=== PATIENT | female | born 1935 | race Caucasian/White ===

== ENCOUNTER 2016-07-22 11:08 | Emergency (ER) | payer OTHER, MEDICARE ==
[2016-07-22 11:17] VITALS: BMI 24.0
--- NOTE | 2016-07-22 12:38 | PDOC ---
History of Present Illness - General Chief Complaint: Chest Pain Stated Complaint: CHEST PAIN, LT SIDE NUMBNESS Time Seen by Provider: 07/22/16 11:54 History Source: Patient Exam Limitations: No Limitations - History of Present Illness Initial Comments: 07/22/16 12:34 80-year-old female with complaints of midsternal chest tightness that radiated to her right shoulder and then to her right neck, right head, and right arm. Patient states with massage and movement symptoms went away but then returned again today and also resolved with massage but decided come to the ER since she was afraid of a stroke versus nerve pain due to her chronic back pain and multiple surgeries. Patient states is under the care of neurosurgeon Dr. Barajas and is pending a cervical surgery due to nerve pain. Patient currently denies chest pain, shortness of breath, palpitations, radiate patient in the chest wall , nausea, diaphoresis, dizziness with episodes. Timing/Duration: 24 hours Severity: moderate Associated Symptoms: reports: chest pain. denies: fever/chills, nausea/vomiting , weakness Past History - Past Medical History Allergies/Adverse Reactions: Allergies Allergy/AdvReac Type Severity Reaction Status Date / Time morphine Allergy hallucinati Verified 07/22/16 11:13 ons Home Medications: Ambulatory Orders Lisinopril [Prinivil] 10 mg PO DAILY 12/23/12 Ibuprofen 800 mg PO DAILY 05/30/15 Acetaminophen W/ Codeine #3 [Tylenol # 3 -] 1 - 2 tab PO Q6H PRN #30 tablet Atorvastatin Ca [Lipitor -] 40 mg PO HS #30 tablet 05/31/15 Anemia: Yes Asthma: No Cardiac Disorders: No COPD: No CHF: No Diabetes: No HTN: Yes Hypercholesterolemia: Yes Other medical history: chronic back pain - Immunization History Immunization Up to Date: No - Psycho/Social/Smoking Cessation Hx Anxiety: No Suicidal Ideation: No Smoking Status: No Smoking History: Never smoked Have you smoked in the past 12 months: No Number of Cigarettes Smoked Daily: 0 Information on smoking cessation initiated: No Hx Alcohol Use: No Drug/Substance Use Hx: No Substance Use Type: None Hx Substance Use Treatment: No Patient Lives Alone: No Lives with/in: daughter Review of Systems - Review of Systems Able to Perform ROS?: Yes Constitutional: No: Symptoms Reported HEENTM: No: Symptoms Reported Respiratory: No: Symptoms reported Cardiac (ROS): Yes: Symptoms Reported, Chest Pain ABD/GI: No: Symptoms Reported : No: Symptoms Reported Musculoskeletal: Yes: Joint Pain (rt shoulder), Muscle Pain (rt neck and arm) Integumentary: No: Symptoms Reported Neurological: Yes: Tingling (rt arm). No: Numbness, Paresthesia, Weakness, Unsteady Gait, Dizziness Endocrine: No: Symptoms Reported Hematologic/Lymphatic: No: Symptoms Reported *Physical Exam - Vital Signs Last Vital Signs Temp Pulse Resp BP Pulse Ox 98 F 78 20 130/71 100 07/22/16 11:13 07/22/16 11:13 07/22/16 11:13 07/22/16 11:13 07/22/16 11:50 - Physical Exam General Appearance: Yes: Nourished, Appropriately Dressed. No: Apparent Distress HEENT: positive: EOMI, BRCUE. negative: Pale Conjunctivae Neck: positive: Supple. negative: Tender, Decreased range of motion Respiratory/Chest: positive: Lungs Clear, Normal Breath Sounds. negative: Respiratory Distress, Accessory Muscle Use Cardiovascular: positive: Regular Rhythm, Regular Rate. negative: Murmur Gastrointestinal/Abdominal: positive: Soft. negative: Tenderness Extremity: negative: Normal Capillary Refill, Pedal Edema Integumentary: positive: Normal Color, Warm, Moist Neurologic: positive: Motor Strength 5/5 (ambulatory) Heart Score/ECG Review - History History: Slightly suspicious - Electrocardiogram EKG: Normal - Age Age: >/= 65 - Risk Factors Risk Factors Heart Score: Yes Hx Hypercholesterolemia, Yes Hx Hypertension Based on the list above the patient has:: 1-2 risk factors - Troponin Troponin: </= normal limit - Score Heart Score - Total: 3 - ECG Intrepretation Rhythm: Regular Rhythm (normal sinus rhythm at [address] elevation or depression) ED Treatment Course - LABORATORY CBC & Chemistry Diagram: 07/22/16 12:43 07/22/16 14:00 - RADIOLOGY Radiology Studies Ordered: Category Date Time Status HEAD CT WITHOUT CONTRAST [CT] Stat CT Scan 07/22/16 12:24 Ordered CHEST X-RAY PORTABLE* [RAD] Stat Radiology 07/22/16 12:24 Ordered Medical Decision Making - Medical Decision Making 07/22/16 12:22 Patient with episodic midsternal chest pain with radiation to her right side 2 since yesterday patient states symptoms resolved with movement and massage. Patient states history of multiple back surgeries with scoliosis requiring 3 surgeries and now pending a cervical surgery. Heart score is 3. Patient concerning for ACS versus intracranial pathology. Patient ordered for labs, cardiac workup and a head CT. 07/22/16 13:56 Laboratory Tests 07/22/16 12:43 WBC 5.4 D Hgb 12.5 D Hct 37.5 Neutrophils % 75.5 07/22/16 15:10 Laboratory Tests 07/22/16 07/22/16 07/22/16 14:00 14:00 14:00 INR 0.99 Sodium 142 Potassium 4.3 Chloride 108 H Carbon Dioxide 28 Anion Gap 6 L BUN 16 Creatinine 0.6 D Random Glucose 92 Calcium 9.3 Magnesium 2.4 Total Bilirubin 0.5 AST 20 ALT 23 D Alkaline Phosphatase 76 Creatine Kinase 103 Troponin I < 0.02 Urine RBC 3 Urine WBC 2 Pt maintains asymptomatic and requesting to go home. Patient will be discharged home to follow-up with her PCP. *DC/Admit/Observation/Transfer Diagnosis at time of Disposition: Right-sided headache Chest pain Qualifiers: Chest pain type: unspecified Qualified Code(s): R07.9 - Chest pain, unspecified - Discharge Dispostion Disposition: HOME Condition at time of disposition: Improved - Referrals Referrals: Ale Johnson MD [Primary Care Provider] - - Patient Instructions Printed Discharge Instructions: DI for Headache, DI for Atypical Chest Pain Additional Instructions: Please follow-up with your PCP and take Tylenol or Motrin for discomfort. If symptoms return or worsen please return to the ED.
[2016-07-22 12:57] LABS: BASOPHIL 0.4 % (0-2.0); EOSINOPHIL 0.8 % (0-4.5); MCH 31.9 pg (25.7-33.7); MCHC 33.3 g/dl (32.0-36.0); MEAN CELL VOLUME 95.9 fl (80-96); NEUTROPHILS 75.5 % (42.8-82.8); PLATELET COUNT 217 K/MM3 (134-434); RDW 13.6 % (11.6-15.6); WHITE BLOOD COUNT 5.4 K/mm3 (4.0-10.0)
[2016-07-22 13:21] VITALS: TEMP 98.3
[2016-07-22 14:21] LABS: URINE APPEARANCE CLEAR; URINE BILIRUBIN NEGATIVE (NEGATIVE); URINE BLOOD NEGATIVE (NEGATIVE); URINE COLOR LTYELLOW; URINE GLUCOSE (UA) NEGATIVE (NEGATIVE); URINE KETONE NEGATIVE (NEGATIVE); URINE NITRITE NEGATIVE (NEGATIVE); URINE PROTEIN NEGATIVE (NEGATIVE); URINE UROBILINOGEN NEGATIVE E.U./dl (0.2-1.0)
[2016-07-22 14:22] LABS: URINE LEUK ESTERASE TRACE (NEGATIVE)
[2016-07-22 14:24] LABS: URINE MUCUS RARE; URINE RBC 3 /hpf (0-3); URINE WBC 2 /hpf (3-5)
[2016-07-22 14:32] LABS: INR 0.99 (0.82-1.09); PROTHROMBIN TIME (PATIENT) 10.9 SEC (9.98-11.88)
[2016-07-22 15:00] LABS: ALBUMIN 4.1 g/dl (3.4-5.0); ANION GAP 6 (8-16); BILIRUBIN,TOTAL 0.5 mg/dL (0.2-1.0); CALCIUM 9.3 mg/dL (8.5-10.1); CO2 28 mmol/L (21-32); CREATININE 0.6 mg/dL (0.55-1.02); GLUCOSE,RANDOM 92 mg/dL (74-106); MAGNESIUM 2.4 mg/dL (1.8-2.4); SGOT/AST 20 U/L (15-37); SGPT/ALT 23 U/L (12-78); TOT PROT 6.5 g/dl (6.4-8.2)
[2016-07-22 15:03] LABS: ALK PHOS 76 U/L (45-117); TROPONIN I < 0.02 ng/ml (0.00-0.05)
[2016-07-22 15:27] VITALS: BP 132/80; PULSE 81
--- NOTE | 2016-07-22 16:35 | EKG ---
Test Reason : Blood Pressure : / mmHG Vent. Rate : 079 BPM Atrial Rate : 079 BPM P-R Int : 144 ms QRS Dur : 080 ms QT Int : 404 ms P-R-T Axes : 055 -21 018 degrees QTc Int : 463 ms POOR DATA QUALITY, INTERPRETATION MAY BE ADVERSELY AFFECTED NORMAL SINUS RHYTHM LOW VOLTAGE QRS BORDERLINE ECG WHEN COMPARED WITH ECG OF 31-MAY-2015 09:32, NO SIGNIFICANT CHANGE WAS FOUND Confirmed by KELLEN TURPIN, EDMUNDO ([id number]) on 07/22/2016 4:34:51 PM Referred By: Confirmed By:EDMUNDO FOREMAN MD
== END 2016-07-22 15:27 | disposition home or self-care (01) ==
LOC: JER 11:08 → SUPCPDRO 11:08 → JER 15:27
DX: R07.89 Other chest pain (principal); R51 Headache; I10 Essential (primary) hypertension; E78.00 Pure hypercholesterolemia, unspecified
CPT/HCPCS: 36415; 70450-TC; 71010-TC; 80053; 81003; 81015; 82550; 83735; 84484; 85025; 85610; 93005; 93010; 99285-25

== ENCOUNTER 2017-01-28 20:40 | Emergency (ER) | payer OTHER, MEDICARE ==
[2017-01-28 20:51] VITALS: BP 158/78; PULSE 70; TEMP 97.6; BMI 22.9
[2017-01-28] MEDS ORDERED: predniSONE 20 MG TABLET (UD) PO ONE (21:25)
[2017-01-28] MEDS ORDERED: predniSONE 20 MG TABLET (UD) ONE (21:28)
--- NOTE | 2017-01-28 21:29 | PDOC ---
History of Present Illness - General Chief Complaint: Allergic Reaction Stated Complaint: RASH Time Seen by Provider: 01/28/17 21:19 History Source: Patient Exam Limitations: No Limitations - History of Present Illness Initial Comments: 01/28/17 21:25 81 yr female with itchy rash started on lower legs now on right arm started yesterday after being outside. no diff breathing, no chest pain or shortness of breath. Pt has had same before has seen a weapons engineer. Past History - Past Medical History Allergies/Adverse Reactions: Allergies Allergy/AdvReac Type Severity Reaction Status Date / Time morphine Allergy hallucinati Verified 01/28/17 20:49 ons Home Medications: Ambulatory Orders Lisinopril [Prinivil] 10 mg PO DAILY 12/23/12 Atorvastatin Ca [Lipitor -] 40 mg PO HS #30 tablet 05/31/15 Prednisone [Deltasone -] 20 mg PO DAILY #3 tablet 01/28/17 Anemia: Yes Asthma: No Cardiac Disorders: No COPD: No CHF: No Diabetes: No HTN: Yes Hypercholesterolemia: Yes Other medical history: Glaucoma - Immunization History Immunization Up to Date: No - Psycho/Social/Smoking Cessation Hx Anxiety: No Suicidal Ideation: No Smoking Status: No Smoking History: Never smoked Have you smoked in the past 12 months: No Number of Cigarettes Smoked Daily: 0 Information on smoking cessation initiated: No Hx Alcohol Use: No Drug/Substance Use Hx: No Substance Use Type: None Hx Substance Use Treatment: No *Physical Exam - Vital Signs Last Vital Signs Temp Pulse Resp BP Pulse Ox 97.6 F 70 19 158/78 97 01/28/17 20:50 01/28/17 20:50 01/28/17 20:50 01/28/17 20:50 01/28/17 20:50 - Physical Exam General Appearance: Yes: Nourished, Appropriately Dressed HEENT: positive: EOMI, BRUCE, Normal ENT Inspection, TMs Normal, Pharynx Normal Neck: positive: Supple. negative: Tender Respiratory/Chest: positive: Lungs Clear, Normal Breath Sounds. negative: Chest Tender Cardiovascular: positive: Regular Rhythm, Regular Rate Gastrointestinal/Abdominal: positive: Normal Bowel Sounds, Soft Musculoskeletal: positive: Normal Inspection Extremity: positive: Normal Capillary Refill, Normal Inspection, Normal Range of Motion Integumentary: positive: Normal Color, Dry, Warm, Rash (lower legs, right arm right cheek with small 3mm maculopapular red rash ) Neurologic: positive: Fully Oriented, Alert, Normal Mood/Affect, Normal Response , Motor Strength 11/12 Medical Decision Making - Medical Decision Making 01/28/17 21:26 rash to lower legs and right arm, right cheek 01/28/17 21:27 *DC/Admit/Observation/Transfer Diagnosis at time of Disposition: Rash and nonspecific skin eruption - Discharge Dispostion Disposition: HOME Condition at time of disposition: Good - Prescriptions Prescriptions: Prednisone [Deltasone -] 20 mg PO DAILY #3 tablet - Patient Instructions Additional Instructions: cool water to bathe use an oatmeal soap such as Aveeno to soothe skin take benadryl 25mg every 6hrs for itching take prednisone daily next dose tomorrow for 3 days follow with your weapons engineer for follow up wear long sleeve white shirt when outside around plants and long pants
== END 2017-01-28 21:50 | disposition home or self-care (01) ==
LOC: JERFT 20:40
DX: R21 Rash and other nonspecific skin eruption (principal); I10 Essential (primary) hypertension; E78.00 Pure hypercholesterolemia, unspecified; H40.9 Unspecified glaucoma
CPT/HCPCS: 99281-25

== ENCOUNTER 2017-03-22 13:53 | Emergency (ER) | payer OTHER, MEDICARE ==
[2017-03-22 14:02] VITALS: TEMP 97.9; BMI 23.1
--- NOTE | 2017-03-22 14:49 | PDOC ---
History of Present Illness - General History Source: Patient Exam Limitations: No Limitations - History of Present Illness Initial Comments: 03/22/17 16:50 Patient is a 81 year old female with significant past medical history of hyperlipidemia, hypertension who presents to the ED sent in by her PMDs covering physician for further evaluation of palpitations for 3 days. Patient notes that the palpitations are intermittent and she reports 3-4 episodes lasting for less than 5 seconds each without associated chest pain and SOB. Patient had a negative EKG at her doctors office. She denies cough, fever or chills. She denies any traveling. Pcp - Dr. Soriano <Radha Cummins - Last Filed: 03/22/17 16:50> <Frank Perera - Last Filed: 03/22/17 18:30> - General Chief Complaint: Palpitations Stated Complaint: PALPITATIONS Time Seen by Provider: 03/22/17 14:48 Past History <Radha Cummins - Last Filed: 03/22/17 16:50> - Past Medical History Anemia: Yes Asthma: No Cardiac Disorders: No COPD: No CHF: No Diabetes: No HTN: Yes Hypercholesterolemia: Yes - Immunization History Immunization Up to Date: No - Psycho/Social/Smoking Cessation Hx Anxiety: No Suicidal Ideation: No Smoking Status: No Smoking History: Never smoked Have you smoked in the past 12 months: No Number of Cigarettes Smoked Daily: 0 Information on smoking cessation initiated: No Hx Alcohol Use: No Drug/Substance Use Hx: No Substance Use Type: None Hx Substance Use Treatment: No <Frank Perera - Last Filed: 03/22/17 18:30> - Past Medical History Allergies/Adverse Reactions: Allergies Allergy/AdvReac Type Severity Reaction Status Date / Time morphine Allergy hallucinati Verified 03/22/17 14:01 ons Home Medications: Ambulatory Orders Lisinopril [Prinivil] 10 mg PO DAILY 12/23/12 Atorvastatin Ca [Lipitor] 40 mg PO HS #30 tablet 05/31/15 Review of Systems - Review of Systems Constitutional: No: Chills, Fever Respiratory: No: Cough, Shortness of Breath Cardiac (ROS): Yes: Palpitations. No: Chest Pain, Edema, Lightheadedness, Syncope ABD/GI: No: Diarrhea, Vomiting Neurological: Yes: Headache (intermittent R sided headache) All Other Systems: Reviewed and Negative <Frank Perera - Last Filed: 03/22/17 18:30> *Physical Exam - Vital Signs Last Vital Signs Temp Pulse Resp BP Pulse Ox 97.9 F 78 18 142/79 99 03/22/17 14:00 03/22/17 14:00 03/22/17 14:00 03/22/17 14:00 03/22/17 14:00 - Physical Exam Comments: 03/22/17 16:51 GENERAL: The patient is awake, alert, and fully oriented, in no acute distress. HEAD: Normal with no signs of trauma. EYES: Pupils equal, round and reactive to light, extraocular movements intact, sclera anicteric, conjunctiva clear with no pallor. ENT: Ears normal, nares patent, oropharynx clear without exudates. Moist mucous membranes. NECK: Normal range of motion, supple without lymphadenopathy, JVD, or masses. LUNGS: Breath sounds equal, clear to auscultation bilaterally. No wheeze/ crackles. HEART: Regular rate and rhythm, normal S1 and S2 without murmur or rub. ABDOMEN: Soft/nontender/nondistended. BS wnl. No guarding or rebound. No palpable masses. No hepatosplenomegaly. EXTREMITIES: +Varicosity left leg worse than right with trace pitting edema. Normal range of motion. No clubbing or cyanosis. No cords, erythema, or tenderness. NEUROLOGICAL: Cranial nerves II through XII grossly intact. Normal speech. PSYCH: Normal mood, normal affect. SKIN: Warm, Dry, normal turgor, no rashes or lesions noted. <Radha Cummins - Last Filed: 03/22/17 16:50> - Vital Signs Last Vital Signs Temp Pulse Resp BP Pulse Ox 97.9 F 78 18 142/79 99 03/22/17 14:00 03/22/17 14:00 03/22/17 14:00 03/22/17 14:00 03/22/17 14:00 <Frank Perera - Last Filed: 03/22/17 18:30> Heart Score/ECG Review #1 ECG reviewed & interpreted by me at: 14:02 General ECG Interpretation: Sinus Rhythm, Normal Rate (79), Normal Intervals ( qtc 454), No acute ischemic changes (isolated flat T in AVL) <Frank Perera - Last Filed: 03/22/17 18:30> ED Treatment Course - LABORATORY CBC & Chemistry Diagram: 03/22/17 15:00 03/22/17 15:01 - ADDITIONAL ORDERS Additional order review: Laboratory Results 03/22/17 03/22/17 03/22/17 16:00 15:01 15:01 INR 1.05 Sodium 142 Potassium 3.9 Chloride 107 Carbon Dioxide 30 Anion Gap 5 L BUN 20 H D Creatinine 0.7 Creat Clearance w eGFR > 60 Random Glucose 122 H D Calcium 9.1 Magnesium 2.2 Total Bilirubin 0.4 AST 25 D ALT 38 D Alkaline Phosphatase 79 Creatine Kinase 137 Troponin I < 0.02 Total Protein 6.7 Albumin 3.9 TSH 2.36 03/22/17 15:00 RBC 3.81 MCV 95.9 MCHC 34.4 RDW 13.1 MPV 8.6 Neutrophils % 68.2 Lymphocytes % 21.8 D Monocytes % 8.9 Eosinophils % 0.6 Basophils % 0.5 <Radha Cummins - Last Filed: 03/22/17 16:50> - LABORATORY CBC & Chemistry Diagram: 03/22/17 15:00 03/22/17 15:01 <Frank Perera - Last Filed: 03/22/17 18:30> Medical Decision Making - Medical Decision Making 03/22/17 16:02 81y/o F h/o HTN, high chol presents for further evaluation of palpitations intermittently for 3 days. Reports about 3-4 episodes of transient (lasting < 5 seconds) palpitations without chest pain/sob. no orthopnea/FELIZ, no cough/f/c. no recent dehydration/infection/wt loss. no recent travel/leg swelling. has limited exercise tolerance at baseline 2/2 chronic back issues, so unclear exertional cardiopulmonary sxs. pt went to see her PCP, was evaluated by a covering physician who performed an EKG and referred her to the ED. reports a clear cath in 2008, otherwise no cardiac evaluation. VSS, well appearing seated in stretcher speaking full sentences, no jvd s1s2 rrr, no m. no ectopy ctab abd soft ? R ankle edema, no calf ttp 81y/o F with intermittent palpitations for 3 days. atypical for anginal equivalent but given her HTN/high chol, sent for evaluation by Dr. Quintero. labs ekg, cxr RLE doppler reassess 03/22/17 17:53 workup negative, normal labs including trop and electrolytes and tsh. CXR and doppler negative. no episodes in the ED, wants to go home. encouraged f/u with PMD and cardiology for holter monitor and stress test. <Frank Perera - Last Filed: 03/22/17 18:30> *DC/Admit/Observation/Transfer - Attestations Scribe Attestion: 03/22/17 16:51 Documentation prepared by ANA Luu, acting as emergency medical services coordinator for Frank Perera MD. <Radha Cummins - Last Filed: 03/22/17 16:50> <Frank Perera - Last Filed: 03/22/17 18:30> Diagnosis at time of Disposition: Palpitations - Discharge Dispostion Disposition: HOME Condition at time of disposition: Stable - Referrals Referrals: Janine Soriano MD [Primary Care Provider] - Sheldon Turner MD [Staff Physician] - - Patient Instructions Printed Discharge Instructions: DI for Palpitations Additional Instructions: Activity as tolerated. Stay hydrated. Blood tests, an EKG, a CXR, and an ultrasound of the leg showed no acute abnormalities. Continue your medications as previously prescribed by your physician. You should follow up with your primary doctor and a rider ticket worker (consider calling Dr. Turner) as soon as possible regarding today's emergency department visit. Recommend a stress test, echocardiogram, and holter monitor as an outpatient. Return to the emergency department for any new or concerning symptoms, particularly persistent or worsening palpitations, chest pain or shortness of breath, cough or fever/chills.
[2017-03-22 15:12] LABS: BASOPHIL 0.5 % (0-2.0); EOSINOPHIL 0.6 % (0-4.5); MCHC 34.4 g/dl (32.0-36.0); MEAN CELL VOLUME 95.9 fl (80-96); MEAN PLT VOLUME 8.6 fl (7.5-11.1); NEUTROPHILS 68.2 % (42.8-82.8); PLATELET COUNT 191 K/MM3 (134-434); RDW 13.1 % (11.6-15.6); WHITE BLOOD COUNT 4.3 K/mm3 (4.0-10.0)
[2017-03-22 15:57] LABS: INR 1.05 (0.82-1.09); PROTHROMBIN TIME (PATIENT) 11.6 SEC (9.98-11.88)
[2017-03-22 16:02] LABS: ALBUMIN 3.9 g/dl (3.4-5.0); ANION GAP 5 (8-16); BILIRUBIN,TOTAL 0.4 mg/dL (0.2-1.0); CALCIUM 9.1 mg/dL (8.5-10.1); CO2 30 mmol/L (21-32); CREATININE 0.7 mg/dL (0.55-1.02); GLUCOSE,RANDOM 122 mg/dL (74-106); MAGNESIUM 2.2 mg/dL (1.8-2.4); SGOT/AST 25 U/L (15-37); SGPT/ALT 38 U/L (12-78); TOT PROT 6.7 g/dl (6.4-8.2)
[2017-03-22 16:05] LABS: ALK PHOS 79 U/L (45-117); CPK 137 IU/L (26-192); TROPONIN I < 0.02 ng/ml (0.00-0.05)
[2017-03-22 17:57] VITALS: BP 144/75; PULSE 71
[2017-03-22] MEDS ORDERED: traMADol HCL 50 MG TABLET PO ONE (18:26)
[2017-03-22] MEDS ORDERED: traMADol HCL 50 MG TABLET ONE (18:35)
--- NOTE | 2017-03-23 11:09 | EKG ---
Test Reason : Blood Pressure : / mmHG Vent. Rate : 079 BPM Atrial Rate : 079 BPM P-R Int : 142 ms QRS Dur : 086 ms QT Int : 396 ms P-R-T Axes : 053 -28 072 degrees QTc Int : 454 ms NORMAL SINUS RHYTHM NORMAL ECG WHEN COMPARED WITH ECG OF 22-JUL-2016 11:14, NO SIGNIFICANT CHANGE WAS FOUND Confirmed by TRAVON DAVILA MD ([id number]) on 03/23/2017 11:09:13 AM Referred By: Confirmed By:TRAVON DAVILA MD
== END 2017-03-22 18:53 | disposition home or self-care (01) ==
LOC: JER 13:53
DX: R00.2 Palpitations (principal); E78.00 Pure hypercholesterolemia, unspecified
CPT/HCPCS: 36415; 71010-TC; 80053; 83735; 84443; 84484; 85025; 85610; 93005; 93010; 93971-TC; 99284-25

== ENCOUNTER 2018-01-15 12:13 | Emergency (ER) | payer OTHER, MEDICARE ==
[2018-01-15 12:19] VITALS: BMI 22.9
--- NOTE | 2018-01-15 12:56 | PDOC ---
Attending Attestation - Medical Decision Making 01/15/18 14:30 Pt presents to the ED complaining of headache that has been persistent for three days and is somewhat different than her chronic headaches, and is also radiating to the chest. Differential includes migraine, less likely intracrainal mass, less likely ACS. Will check labs and cardiac enzymes, check CT head, treat pain with reglan and benadryl. <Kavita Nogueira - Last Filed: 01/15/18 14:30> - HPI HPI: Patient is an 82 year old female, with PMHx of HTN, HLD, multiple neck and back surgeries , who presents with a headache for 3 days. She states that the pain is constant and starts in the back of her head, moves down her neck bilaterally , around her eyes and towards her chest. She states that her headache is different than her normal chronic occipital headaches. She states she took 4 250 mg of Tylenol last night and 3 this morning with little relief. She denies nausea, vomitting, diarrhea, constipation. Denies shortness of breath. Denies photophobia. Denies recent trauma, denies h/o stroke. 01/15/18 14:37 - Physicial Exam PE: GENERAL: Awake, alert, and fully oriented, in no acute distress HEAD: No signs of trauma EYES: PERRLA, EOMI, sclera anicteric, conjunctiva clear ENT: Auricles normal inspection, hearing grossly normal, nares patent, oropharynx clear without exudates. Moist mucosa NECK: Normal ROM, supple, no lymphadenopathy, JVD, or masses LUNGS: Breath sounds equal, clear to auscultation bilaterally. No wheezes, and no crackles HEART: Regular rate and rhythm, normal S1 and S2, no murmurs, rubs or gallops ABDOMEN: Soft, nontender, normoactive bowel sounds. No guarding, no rebound. No masses EXTREMITIES: Normal range of motion, no edema. No clubbing or cyanosis. No cords, erythema, or tenderness NEUROLOGICAL: Cranial nerves II through XII grossly intact. Normal speech, normal gait SKIN: Warm, Dry, normal turgor, no rashes or lesions noted. 01/15/18 14:38 <Angela Eller - Last Filed: 01/15/18 14:38>
[2018-01-15] MEDS ORDERED: METOCLOPRAMIDE HCL INJECTION 10 MG/2 ML VIAL IVPUSH ONE (13:45)
--- NOTE | 2018-01-15 13:59 | PDOC ---
History of Present Illness - General Chief Complaint: Headache Stated Complaint: HEADACHE Time Seen by Provider: 01/15/18 12:54 History Source: Patient, Family (Daughter) Exam Limitations: Language Barrier (Pt primary malay speaking but conversational in Macanese. Daughter provided translation for some phrases.) - History of Present Illness Initial Comments: 01/15/18 13:52 82 y/o female presenting to [facility] ED via private car complaining of a headache for two days. Pt states the pain starts in the back of her head, moves down both sides of her neck, around her eyes, and into her chest. It started yesterday while she was at rest. It is made worse with loud noises, but is not provoked by light or exertion. She suffers from frequent headaches which are normally responsive to Tylenol but do not usually radiate to the chest. She believes she was taken approx. 7 Tylenol "pills," unable to recall exact number or strength. The Tylenol is not provided any relief. She further reports this is not an unusual amount of Tylenol for her; estimates using it every day of the week. Pt denies trauma to the area, change in vision, change in hearing, dizziness, syncope, trouble swallowing, difficulty breathing, nausea, or vomiting. Endorses history of glaucoma, unable to recall type, uses unknown type of "eye drops" for relief. Current pain is not similar to prior episodes of increased ocular pressure. Past History - Past Medical History Allergies/Adverse Reactions: Allergies Allergy/AdvReac Type Severity Reaction Status Date / Time morphine Allergy hallucinati Verified 01/15/18 12:19 ons Home Medications: Ambulatory Orders Lisinopril [Prinivil] 10 mg PO DAILY 12/23/12 Atorvastatin Ca [Lipitor] 40 mg PO HS #30 tablet 05/31/15 Anemia: Yes Asthma: No Cardiac Disorders: No COPD: No CHF: No Diabetes: No HTN: Yes Hypercholesterolemia: Yes - Surgical History Comments:: 01/15/18 14:00 Pt reports h/o lumbar spinal surgery in 2014. No recent surgeries or hospitalizations. - Immunization History Immunization Up to Date: No - Suicide/Smoking/Psychosocial Hx Smoking Status: No Smoking History: Never smoked Have you smoked in the past 12 months: No Number of Cigarettes Smoked Daily: 0 Hx Alcohol Use: No Drug/Substance Use Hx: No Substance Use Type: None Hx Substance Use Treatment: No Neuro Specific PMHX - Complaint Specific PMHX Glaucoma: Yes Migraine: Yes TIA: No Review of Systems - Review of Systems Able to Perform ROS?: Yes Is the patient limited Macanese proficient: Yes Constitutional: Yes: Weakness. No: Chills, Diaphoresis, Fever HEENTM: No: Eye Pain, Blurred Vision, Recent change in vision, Double Vision, Hearing Loss, Difficulty Swallowing Cardiac (ROS): Yes: Chest Pain. No: Lightheadedness, Palpitations, Syncope ABD/GI: No: Constipated, Diarrhea, Difficulty Swallowing, Nausea, Vomiting : No: Burning, Dysuria Musculoskeletal: Yes: Back Pain (Chronic) Integumentary: No: Bruising, Rash Neurological: Yes: Headache. No: Numbness, Unsteady Gait, Dizziness Endocrine: No: Excessive Sweating, Increased Urine *Physical Exam - Vital Signs Last Vital Signs Temp Pulse Resp BP Pulse Ox 97.5 F L 73 18 147/83 97 01/15/18 12:16 01/15/18 12:16 01/15/18 12:16 01/15/18 12:16 01/15/18 12:16 - Physical Exam Comments: 01/15/18 14:04 Elderly adult female in no acute distress. Pt found sitting in a wheelchair in a back brace. Alert and oriented x4. Answered all questions appropriately and completely. Dressed and groomed appropriately. HEENT: positive: BRUCE, Normal ENT Inspection, Normal Voice, Symmetrical, TMs Normal, Pharynx Normal. negative: Scleral Icterus (R), Scleral Icterus (L), Muffled/Hoarse voice, Pharyngeal Erythema, Tonsillar Exudate, Tonsillar Erythema , Rhinorrhea, Sinus Tenderness, Orbits, Thrush Neck: positive: Trachea midline, Supple. negative: Tender, Rigid, Decreased range of motion Respiratory/Chest: positive: Lungs Clear, Normal Breath Sounds. negative: Chest Tender, Respiratory Distress, Accessory Muscle Use Cardiovascular: positive: Regular Rhythm, Regular Rate, S1, S2. negative: Edema , JVD, Murmur Musculoskeletal: positive: Other (Normal active and passive range of motion of both upper extrimities. No chest wall tenderness to palpation. Normal active range of motion of neck. No point tenderness to posterior aspect of skull.). negative: Vertebral Tenderness (No cervical vertebral tenderness. ) Extremity: negative: Tender, Pedal Edema, Swelling, Calf Tenderness Integumentary: positive: Normal Color, Dry, Warm Neurologic: positive: paper stacker II-XII NML intact, Fully Oriented, Alert, Normal Mood/ Affect, Normal Response, Motor Strength 5/5 ED Treatment Course - LABORATORY CBC & Chemistry Diagram: 01/15/18 14:11 01/15/18 14:17 - RADIOLOGY Radiology Studies Ordered: Category Date Time Status HEAD CT WITHOUT CONTRAST [CT] Stat CT Scan 01/15/18 13:44 Ordered CHEST PA & LAT [RAD] Stat Radiology 01/15/18 13:42 Ordered Medical Decision Making - Medical Decision Making 01/15/18 14:11 82 y/o female with HTN, HCL, h/o lumbar spinal surgery presenting for headache with radiation to neck, eyes, and chest x2 days. Pain different than pt's typical headaches because of radiation. No red flags elicited on history. Denies trauma. Endorses using Tylenol every day of the week. Vitals remarkable for hypertension to 147/83. Physical exam unrevealing with normal neurological, cardiovascular, and respiratory exam. Low suspicion for CVA given unremarkable neurological physical exam. Low suspicion for encephalitis/meningitis as pt is afebrile, not tachycardic, and has full range of motion of neck. Low suspicion for ACS given origin of pain however chest pain is atypical for her headaches. History and physical most concerning for rebound headache given daily Tylenol use. Will obtain non-contrast head CT given elderly status; last CT obtained Jul 2016. Will obtain 12-lead EKG, CXR, CBC, BMP, Troponin. Will trail Benadryl and metoclopramide for symptom relief. Pt initially requested to have all studies performed because she did not want to wait. After discussion, pt became amenable to staying. 01/15/18 15:36 Pt reports headache has resolved. CBC, BMP, and troponin are all unremarkable. EKG showed a sinus rhythm without ectopy. CXR unremarkable for acute cardiopulmonary pathology. Head CT unremarkable for intracranial or bony pathology. Discussed results with pt and daughter and plan for discharge to home with neurology follow up. Both expressed verbal understanding and agreement with plan. Counseled on concerning symptoms which would require returning to ER. Additionally counseled on need to decrease OTC Tylenol usage. Encouraged to follow up with neurology and PCP. *DC/Admit/Observation/Transfer Diagnosis at time of Disposition: Headache Qualifiers: Headache type: unspecified Headache chronicity pattern: acute headache Intractability: not intractable Qualified Code(s): R51 - Headache - Discharge Dispostion Disposition: HOME Condition at time of disposition: Improved - Referrals Referrals: Gregory Alas MD [Staff Physician] - - Patient Instructions Printed Discharge Instructions: DI for Headache Additional Instructions: You should attempt to decrease the amount of Tylenol you are using at home. Taking this medication everyday can cause rebound headaches. Please follow up with Dr. Alas, a neurologist, for help with managing your chronic headaches. You should also follow up with your primary care physician as needed for help managing your headaches and back pain. Please return to the emergency room if your headache becomes significantly worse or if you begin to experience a change in vision, trouble walking, extreme nausea and vomiting, or you pass out. - Post Discharge Activity
[2018-01-15] MEDS ORDERED: METOCLOPRAMIDE HCL INJECTION 10 MG/2 ML VIAL ONE (14:05)
[2018-01-15 14:25] LABS: BASO % 0.6 % (0-2.0); EOS % 1.5 % (0-4.5); HEMATOCRIT 37.7 % (32.4-45.2); HEMOGLOBIN 12.7 GM/dL (10.7-15.3); LYMPH % 17.4 % (8-40); MCH 32.4 pg (25.7-33.7); MCHC 33.6 g/dl (32.0-36.0); MEAN CELL VOLUME 96.4 fl (80-96); MEAN PLT VOLUME 8.7 fl (7.5-11.1); NEUT % 68.5 % (42.8-82.8); PLATELET COUNT 201 K/MM3 (134-434); RBC 3.91 M/mm3 (3.60-5.2); RDW 13.1 % (11.6-15.6); WHITE BLOOD COUNT 4.4 K/mm3 (4.0-10.0)
[2018-01-15 14:53] LABS: ANION GAP 6 (8-16); BLOOD UREA NITROGEN 22 mg/dL (7-18); CHLORIDE 107 mmol/L (98-107); CO2 30 mmol/L (21-32); CREATININE 0.7 mg/dL (0.55-1.02); GLUCOSE,RANDOM 83 mg/dL (74-106); POTASSIUM 4.2 mmol/L (3.5-5.1); SODIUM 143 mmol/L (136-145)
[2018-01-15 15:59] VITALS: BP 126/75; PULSE 72; TEMP 98
--- NOTE | 2018-01-16 09:09 | EKG ---
Test Reason : Blood Pressure : / mmHG Vent. Rate : 068 BPM Atrial Rate : 068 BPM P-R Int : 158 ms QRS Dur : 084 ms QT Int : 442 ms P-R-T Axes : 063 -16 045 degrees QTc Int : 469 ms NORMAL SINUS RHYTHM NORMAL ECG WHEN COMPARED WITH ECG OF 22-MAR-2017 14:02, NO SIGNIFICANT CHANGE WAS FOUND Confirmed by EDEN DICKSON MD ([id number]) on 01/16/2018 9:08:38 AM Referred By: Confirmed By:EDEN DICKSON MD
== END 2018-01-15 16:04 | disposition home or self-care (01) ==
LOC: JER 12:13
PROC: 3E033GC Introduction of Other Therapeutic Substance into Peripheral Vein, Percutaneous Approach (ICD-10-PCS; principal; 2018-01-15)
PROC: 3E033GC Introduction of Other Therapeutic Substance into Peripheral Vein, Percutaneous Approach (ICD-10-PCS; 2018-01-15)
DX: R51 Headache (principal); I10 Essential (primary) hypertension; E78.00 Pure hypercholesterolemia, unspecified; Z86.2 Personal history of diseases of the blood and blood-forming organs and certain disorders involving the immune mechanism; H40.9 Unspecified glaucoma; M54.9 Dorsalgia, unspecified; G89.29 Other chronic pain
CPT/HCPCS: 36415; 70450-TC; 71046-TC-FY; 80048; 80307; 84484; 85025; 93005; 93010; 96374; 96375; 99283-25

== ENCOUNTER 2018-06-06 09:25 | Inpatient (IN) | payer OTHER, MEDICARE ==
[2018-06-06 09:41] VITALS: BMI 23.1
--- NOTE | 2018-06-06 11:00 | PDOC ---
History of Present Illness - General History Source: Patient, Family Exam Limitations: No Limitations - History of Present Illness Initial Comments: 06/06/18 11:57 The patient is a 82 year old female with a past medical history of HTN, HLD, and scoliosis here today for evaluation of right leg pain. The patient reports that a headache began last night which radiated down her whole right side a/w right leg weakness. She notes associated weakness in her right LE and at first could not ambulate. She notes she is able to ambulate now but it is not her baseline. Right sided headache mild ache now, no visual or hearing disturbances , no vertigo or dizziness. Patient denies headache, lightheadedness. Denies heavy lifting. Denies fever, chills. Denies chest pain, shortness of breath. Denies nausea, vomiting, diarrhea, abdominal pain. Denies lower extremity edema. Denies urinary symptoms. Allergies: morphine Social history: denies tobacco, drug, alcohol use Surgical history: appendectomy, back surgery x3 for scoliosis PCP: Anne Desai <Iam Ingram - Last Filed: 06/06/18 13:19> - General History Source: Patient Exam Limitations: No Limitations <Sylvia Sinclair - Last Filed: 06/06/18 15:05> - General Chief Complaint: Headache Stated Complaint: HEADACHE, NUMBNESS,RT SIDE Time Seen by Provider: 06/06/18 10:23 Past History <Iam Ingram - Last Filed: 06/06/18 13:19> - Past Medical History Anemia: Yes Asthma: No Cardiac Disorders: No COPD: No CHF: No Diabetes: No HTN: Yes Hypercholesterolemia: Yes - Immunization History Immunization Up to Date: No - Suicide/Smoking/Psychosocial Hx Smoking Status: No Smoking History: Never smoked Have you smoked in the past 12 months: No Number of Cigarettes Smoked Daily: 0 Hx Alcohol Use: No Drug/Substance Use Hx: No Substance Use Type: None Hx Substance Use Treatment: No <Sylvia Sinclair - Last Filed: 06/06/18 15:05> - Past Medical History Allergies/Adverse Reactions: Allergies Allergy/AdvReac Type Severity Reaction Status Date / Time morphine Allergy hallucinati Verified 06/06/18 09:37 ons Home Medications: Ambulatory Orders Lisinopril [Prinivil] 10 mg PO DAILY 12/23/12 Atorvastatin Ca [Lipitor] 40 mg PO DAILY 06/06/18 Neuro Specific PMHX - Complaint Specific PMHX Glaucoma: Yes Migraine: Yes TIA: No <Sylvia Sinclair - Last Filed: 06/06/18 15:05> Review of Systems - Review of Systems Able to Perform ROS?: Yes Comments:: 06/06/18 11:57 GENERAL/CONSTITUTIONAL: No fever or chills. No weakness. no sweats. HEAD, EYES, EARS, NOSE AND THROAT: No change in vision or hearing. No ear pain or discharge. No sore throat or mouth pain. No difficulty swallowing. No congestion. CARDIOVASCULAR: No chest pain or palpitations, syncope or edema. RESPIRATORY: No SOB, cough, wheezing, or hemoptysis. GASTROINTESTINAL No nausea/vomiting. No diarrhea or constipation. No bloody stools. GENITOURINARY: No hematuria, dysuria, frequency, urgency or other changes. MUSCULOSKELETAL: No joint or muscle swelling or pain. No neck or back pain. SKIN: No rash or changes in skin color or lesions. NEUROLOGIC: +headache, +weakness. No vertigo, loss of consciousness, or change in strength/sensation. No gait instability. HEMATOLOGIC/LYMPHATIC: No anemia, easy bruising/bleeding, or history of blood clots. ALLERGIC/IMMUNOLOGIC: No allergies All other systems reviewed and negative, or as documented in HPI. <Juan JoseIam - Last Filed: 06/06/18 13:19> *Physical Exam - Vital Signs Last Vital Signs Temp Pulse Resp BP Pulse Ox 98.5 F 82 16 154/79 96 06/06/18 09:37 06/06/18 09:37 06/06/18 09:37 06/06/18 09:37 06/06/18 09:37 - Physical Exam Comments: 06/06/18 11:57 General: Well appearing, awake and alert, NAD. HEENT: NCAT, PERRL, EOMI, clear conjunctiva, anicteric, moist mucus membranes, clear oropharynx, no oral lesions.. Neck: neck supple, FROM Resp: CTAB, normal and even respirations, no respiratory distress CVS: RRR, no murmurs, 2+ peripheral pulses throughout, no peripheral edema Abdomen: soft, NTND, no peritoneal signs. Back: nontender, normal inspection and ROM MSK: no edema, TAVERA x4, ROM intact. No clubbing or cyanosis. normal bulk and tone. Extremities: no calf tenderness Neuro: Alert, oriented to person time and place. CN II-XII grossly intact. Strength prox and distally 5/5 throughout. Sensation grossly intact to light touch. TAVERA x4. No cerebellar signs, no dysmetria, bilateral finger to nose and heel to wells equal and symmetric. Speech clear. Skin: warm and well perfused, cap refill <2 sec, normal color <Iam Ingram - Last Filed: 06/06/18 13:19> - Vital Signs Last Vital Signs Temp Pulse Resp BP Pulse Ox 98.5 F 82 16 154/79 96 06/06/18 09:37 06/06/18 09:37 06/06/18 09:37 06/06/18 09:37 06/06/18 09:37 <Sylvia Sinclair - Last Filed: 06/06/18 15:05> Moderate Sedation - Procedure Monitoring Vital Signs: Procedure Monitoring Vital Signs Temperature 98.5 F 06/06/18 09:37 Pulse Rate 82 06/06/18 09:37 Respiratory Rate 16 06/06/18 09:37 Blood Pressure 154/79 06/06/18 09:37 O2 Sat by Pulse Oximetry (%) 96 06/06/18 09:37 <Iam Ingram - Last Filed: 06/06/18 13:19> - Procedure Monitoring Vital Signs: Procedure Monitoring Vital Signs Temperature 98.5 F 06/06/18 09:37 Pulse Rate 82 06/06/18 09:37 Respiratory Rate 16 06/06/18 09:37 Blood Pressure 154/79 06/06/18 09:37 O2 Sat by Pulse Oximetry (%) 96 06/06/18 09:37 <Sylvia Sinclair - Last Filed: 06/06/18 15:05> ED Treatment Course - LABORATORY CBC & Chemistry Diagram: 06/06/18 11:11 06/06/18 11:11 - ADDITIONAL ORDERS Additional order review: Laboratory Results 06/06/18 06/06/18 11:11 11:11 PT with INR 11.30 INR 0.96 Sodium 141 Potassium 3.9 Chloride 106 Carbon Dioxide 28 Anion Gap 7 L BUN 23 H Creatinine 0.7 Creat Clearance w eGFR > 60 Random Glucose 86 Calcium 8.7 Total Bilirubin 0.5 AST 20 ALT 30 Alkaline Phosphatase 78 Creatine Kinase 89 Troponin I < 0.02 Total Protein 6.5 Albumin 3.8 06/06/18 11:11 RBC 3.87 MCV 93.6 MCHC 35.8 RDW 13.5 MPV 8.8 Neutrophils % 73.2 Lymphocytes % 15.7 Monocytes % 10.2 Eosinophils % 0.6 Basophils % 0.3 <José Miguel Ingramel - Last Filed: 06/06/18 13:19> - LABORATORY CBC & Chemistry Diagram: 06/06/18 11:11 06/06/18 11:11 <Sylvia Sinclair - Last Filed: 06/06/18 15:05> Medical Decision Making - Medical Decision Making 06/06/18 13:15 I, Sylvia Sinclair MD, attest that this document has been prepared under my direction and personally reviewed by me in its entirety. I further attest, that it accurately reflects all work, treatment, procedures and medical decision -making performed by me. Gracie is a 82 year old female with a past medical history of HTN, HLD, and scoliosis here today for evaluation of right leg pain, right sided headache and weakness. ddX. 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 electrolyte/metabolic derangements , ACS, arthritis. Vital signs reviewed, wnl. Prior notes reviewed, including admissions, discharges and consultations. laboratory results and imaging reviewed, basic labs and lytes wnl, notable for_ . CXR_clear. pelvis xr unremarkable. Cardiac panel_neg trop. reassuring, no s/s ischemia. EKG normal sinus rhythm, no interval abnormalities, narrow QRS, ST and T wave segments and morphology normal. Nonspecific T wave abnormalities CT head neg for CVA/lesion or bleed. ED course: not tpa candidate, onset of symptoms last night at 10pm. No focal deficits now. Dispo: Admit for stroke workup, right sided headache/weakness and advanced imaging/MRA/MRI. Discussed results and management plan with pt and family member at bedside, agree with impression and plan PMD Dr. Desai, admit to Dr Bucio 06/06/18 15:04 <Sylvia Sinclair - Last Filed: 06/06/18 15:05> *DC/Admit/Observation/Transfer - Attestations Scribe Attestion: 06/06/18 11:57 Documentation prepared by ANA Restrepo, acting as medical malpractice paralegal for Sylvia Sinclair MD, MD. <Iam Ingram - Last Filed: 06/06/18 13:19> - Discharge Dispostion Decision to Admit order: Yes Decision to Admit order Date/Time: 06/06/18 15:03 <Sylvia Sinclair - Last Filed: 06/06/18 15:05> Diagnosis at time of Disposition: Weakness, Headache - Discharge Dispostion Condition at time of disposition: Fair
[2018-06-06 11:26] LABS: BASO % 0.3 % (0-2.0); EOS % 0.6 % (0-4.5); HEMATOCRIT 36.2 % (32.4-45.2); LYMPH % 15.7 % (8-40); MCH 33.5 pg (25.7-33.7); MCHC 35.8 g/dl (32.0-36.0); MEAN CELL VOLUME 93.6 fl (80-96); MEAN PLT VOLUME 8.8 fl (7.5-11.1); MONO % 10.2 % (3.8-10.2); NEUT % 73.2 % (42.8-82.8); PLATELET COUNT 197 K/MM3 (134-434); RBC 3.87 M/mm3 (3.60-5.2); RDW 13.5 % (11.6-15.6); WHITE BLOOD COUNT 4.5 K/mm3 (4.0-10.0)
[2018-06-06 11:42] LABS: INR 0.96 (0.83-1.09); PROTHROMBIN TIME (PATIENT) 11.3 SEC (9.7-13.0)
[2018-06-06 11:51] LABS: ALBUMIN 3.8 g/dl (3.4-5.0); ALK PHOS 78 U/L (45-117); ANION GAP 7 MMOL/L (8-16); BILIRUBIN,TOTAL 0.5 mg/dL (0.2-1); BLOOD UREA NITROGEN 23 mg/dL (7-18); CALCIUM 8.7 mg/dL (8.5-10.1); CHLORIDE 106 mmol/L (98-107); CO2 28 mmol/L (21-32); CREATININE 0.7 mg/dL (0.55-1.3); GLUCOSE,RANDOM 86 mg/dL (74-106); POTASSIUM 3.9 mmol/L (3.5-5.1); SGOT/AST 20 U/L (15-37); SGPT/ALT 30 U/L (13-61); SODIUM 141 mmol/L (136-145); TOT PROT 6.5 g/dl (6.4-8.2)
[2018-06-06 13:35] LABS: URINE APPEARANCE CLEAR; URINE BILIRUBIN NEGATIVE (<2.0 mg/dL); URINE COLOR LTYELLOW; URINE GLUCOSE (UA) NEGATIVE (NEGATIVE); URINE KETONE NEGATIVE (NEGATIVE); URINE LEUK ESTERASE NEGATIVE (NEGATIVE); URINE NITRITE NEGATIVE (NEGATIVE); URINE PROTEIN NEGATIVE (NEGATIVE); URINE UROBILINOGEN NEGATIVE mg/dL (0.2-1.0)
--- NOTE | 2018-06-06 14:16 | EKG ---
Test Reason : Blood Pressure : / mmHG Vent. Rate : 073 BPM Atrial Rate : 073 BPM P-R Int : 154 ms QRS Dur : 086 ms QT Int : 400 ms P-R-T Axes : 041 -29 031 degrees QTc Int : 440 ms NORMAL SINUS RHYTHM POSSIBLE LEFT ATRIAL ENLARGEMENT BORDERLINE ECG WHEN COMPARED WITH ECG OF 15-JAN-2018 15:05, T WAVE INVERSION NOW EVIDENT IN ANTERIOR LEADS Confirmed by MD Deandre, Iam ([id number]) on 06/06/2018 2:15:50 PM Referred By: Confirmed By:Iam Carrera MD
--- NOTE | 2018-06-06 15:20 | HP ---
Admitting History and Physical - Primary Care Physician PCP: Tio Bucio - Admission Chief Complaint: LEG WEAKNESS/HEADACHE History of Present Illness: PATIENT WAS AT HOME WITH SUDDEN ONSET OF HEADACHE AND LEG NUMBNESS H/O HTN, LIPIDEMIA NOW IN STROKE PROTOCOL WORKUP History Source: Patient, Medical Record - Smoking History Smoking history: Never smoked Have you smoked in the past 12 months: No Aproximately how many cigarettes per day: 0 - Alcohol/Substance Use Hx Alcohol Use: No Home Medications - Allergies Allergies/Adverse Reactions: Allergies Allergy/AdvReac Type Severity Reaction Status Date / Time morphine Allergy hallucinati Verified 06/06/18 09:37 ons - Home Medications Home Medications: Ambulatory Orders Lisinopril [Prinivil] 10 mg PO DAILY 12/23/12 Atorvastatin Ca [Lipitor] 40 mg PO DAILY 06/06/18 Review of Systems - Review of Systems Constitutional: reports: Weakness Eyes: reports: No Symptoms HENT: reports: No Symptoms Neck: reports: No Symptoms Cardiovascular: reports: No Symptoms Respiratory: reports: No Symptoms Gastrointestinal: reports: No Symptoms Genitourinary: reports: Frequency Musculoskeletal: reports: No Symptoms Integumentary: reports: No Symptoms Neurological: reports: Dizziness, Headache, Weakness Endocrine: reports: No Symptoms Hematology/Lymphatic: reports: No Symptoms Psychiatric: reports: No Symptoms Physical Examination Vital Signs: Vital Signs Temperature 98.5 F 06/06/18 09:37 Pulse Rate 75 06/06/18 13:12 Respiratory Rate 18 06/06/18 13:12 Blood Pressure 146/70 06/06/18 13:12 O2 Sat by Pulse Oximetry (%) 98 06/06/18 13:12 Constitutional: Yes: Mild Distress Eyes: Yes: WNL HENT: Yes: WNL Neck: Yes: WNL Cardiovascular: Yes: WNL Respiratory: Yes: WNL Gastrointestinal: Yes: WNL Renal/: Yes: WNL Musculoskeletal: Yes: WNL Extremities: Yes: WNL Edema: No Peripheral Pulses WNL: Yes Integumentary: Yes: WNL Wound/Incision: Yes: Clean/Dry Neurological: Yes: Other ...Motor Strength: LLE, RLE Psychiatric: Yes: WNL Labs: CBC, BMP 06/06/18 11:11 06/06/18 11:11 Imaging - Results Cat Scan: Report Reviewed Problem List - Problems (1) Headache Code(s): R51 - HEADACHE (2) Weakness Code(s): R53.1 - WEAKNESS (3) Hyperlipidemia Code(s): E78.5 - HYPERLIPIDEMIA, UNSPECIFIED (4) Hypertension Code(s): I10 - ESSENTIAL (PRIMARY) HYPERTENSION Assessment/Plan MRI BRAIN LIPID PANEL NEURO EVAL PT EVAL OBSERVATION
[2018-06-06] MEDS ORDERED: ASPIRIN COATED 81 MG TABLET.EC ONE (16:04)
[2018-06-06] MEDS: ASPIRIN COATED 81 MG TABLET.EC PO SCH (16:11)
[2018-06-06] MEDS: ATORVASTATIN CA 40 MG TABLET (FP) PO SCH (22:19)
[2018-06-06] MEDS: ACETAMINOPHEN 325 MG TABLET (FP) PO PRN (22:19)
--- NOTE | 2018-06-07 06:22 | HOSP ---
Subjective - Review of Symptoms Events since last encounter: Hospitalist Encounter Was notified by the ED Clinical Cream Hauler and ED Charge Nurse that the patient' s daughter was requesting to speak with the doctor in charge of her mother's care, she wanted to know the results of the Head CT and Brain MRI. Subjective: Arrived to the bedside, patient is alert, awake and oriented with her daughter standing at the bedside. I introduced myself as the covering CUSTOMER ENGINEER Hospitalist for tonight. I allowed the patient's daughter to vent her concerns and frustrations with the "lack of care" the patient's daughter assumed occurred. I provided reassurance and empathy. I explained the results of the CT and MRI/MRA to the daughter. I appraised her of the plan of care for the patient. The patient's daughter seemed satisfied with the information. The patient was subsequently transported to the floor by the robotics technician. I left my business card with the patient for her daughter, as a contact acid plant operator for tonight if needed. The patient's PMD is Dr. Bucio who will resume care in the AM. Physical Examination Vital Signs: Vital Signs Temperature 98 F 06/06/18 21:49 Pulse Rate 75 06/06/18 21:49 Respiratory Rate 20 06/06/18 22:10 Blood Pressure 136/75 06/06/18 21:49 O2 Sat by Pulse Oximetry (%) 98 06/06/18 22:10 Labs: CBC, BMP 06/06/18 11:11 06/06/18 11:11
[2018-06-07 08:54] LABS: CHOLESTEROL 167 mg/dL (50-200); HDL CHOLESTEROL 68 mg/dL (40-60); TRIGLYCERIDES 75 mg/dL (0-150)
[2018-06-07] MEDS ORDERED: MAG HYDROX/AL HYDROX/SIMETH -MYLANTA- ORAL SUSPENSION PO ONE (09:13)
--- NOTE | 2018-06-07 09:14 | PN ---
Progress Note, Physician History of Present Illness: Burning sensation in her epigastric area after eating - Current Medication List Current Medications: Active Medications Acetaminophen (Tylenol -) 650 mg PO Q6H PRN PRN Reason: PAIN OR FEVER Last Admin: 06/06/18 22:19 Dose: 650 mg Aspirin (Ecotrin -) 81 mg PO DAILY [facility] Last Admin: 06/06/18 16:11 Dose: 81 mg Atorvastatin Calcium (Lipitor -) 40 mg PO HS [facility] Last Admin: 06/06/18 22:19 Dose: 40 mg - Objective Vital Signs: Vital Signs Temperature 98 F 06/06/18 21:49 Pulse Rate 75 06/06/18 21:49 Respiratory Rate 20 06/06/18 22:10 Blood Pressure 136/75 06/06/18 21:49 O2 Sat by Pulse Oximetry (%) 98 06/06/18 22:10 Cardiovascular: Yes: Regular Rate and Rhythm Respiratory: Yes: Regular, CTA Bilaterally Gastrointestinal: Yes: Normal Bowel Sounds, Soft Edema: No Neurological: Yes: Alert, Oriented Labs: CBC, BMP 06/06/18 11:11 06/06/18 11:11 INR, PTT INR 0.96 (0.83-1.09) 06/06/18 11:11 Problem List - Problems (1) Headache Assessment/Plan: -Resolved c/o tinnitus--outpatient ent neuro Code(s): R51 - HEADACHE (2) Chest pain Assessment/Plan: -Atypical -maybe gerd -ppi -ekg and ce -cardio Code(s): R07.9 - CHEST PAIN, UNSPECIFIED Qualifiers: Chest pain type: unspecified Qualified Code(s): R07.9 - Chest pain, unspecified (3) T wave inversion in EKG Assessment/Plan: -Repeat -CE Code(s): R94.31 - ABNORMAL ELECTROCARDIOGRAM [ECG] [EKG]
--- NOTE | 2018-06-07 09:39 | CONSULT ---
Consult - text type - Consultation Consultation Note: Neurology History of Present Illness 82 year old female with a past medical history of HTN, HLD, and scoliosis admitted for evaluation of right leg pain. The patient reported that a headache began last night which radiated down her whole right side a/w right leg weakness. She noted associated weakness in her right LE and at first could not ambulate. She notes she is able to ambulate now but it is not her baseline. Right sided headache mild ache now, no visual or hearing disturbances, no vertigo or dizziness. Patient denies lightheadedness. Denies heavy lifting. Denies fever, chills. Denies chest pain, shortness of breath. Denies nausea, vomiting, diarrhea, abdominal pain. Denies lower extremity edema. Denies urinary symptoms. She completed MRI brain which did not show infarct. MRA also done and reviewed with patient and also without stenosis, aneurysm. Does have h/ o 3 prior lumbar surgeries, possibly related to this. Sees specialist as outpatient, ambulating with me this AM, advised her to follow up with her specialist as she was getting injections to lower back. Past History - Past Medical History Anemia: Yes Asthma: No Cardiac Disorders: No COPD: No CHF: No Diabetes: No HTN: Yes Hypercholesterolemia: Yes - Immunization History Immunization Up to Date: No - Suicide/Smoking/Psychosocial Hx Smoking Status: No Smoking History: Never smoked Have you smoked in the past 12 months: No Number of Cigarettes Smoked Daily: 0 Hx Alcohol Use: No Drug/Substance Use Hx: No Substance Use Type: None Hx Substance Use Treatment: No - Past Medical History Allergies/Adverse Reactions: Allergies Allergy/AdvReac Type Severity Reaction Status Date / Time morphine Allergy hallucinati Verified 06/06/18 09:37 ons Home Medications: Ambulatory Orders Lisinopril [Prinivil] 10 mg PO DAILY 12/23/12 Atorvastatin Ca [Lipitor] 40 mg PO DAILY 06/06/18 Review of Systems GENERAL/CONSTITUTIONAL: No fever or chills. No weakness. no sweats. HEAD, EYES, EARS, NOSE AND THROAT: No change in vision or hearing. No ear pain or discharge. No sore throat or mouth pain. No difficulty swallowing. No congestion. CARDIOVASCULAR: No chest pain or palpitations, syncope or edema. RESPIRATORY: No SOB, cough, wheezing, or hemoptysis. GASTROINTESTINAL No nausea/vomiting. No diarrhea or constipation. No bloody stools. GENITOURINARY: No hematuria, dysuria, frequency, urgency or other changes. MUSCULOSKELETAL: No joint or muscle swelling or pain. No neck or back pain. SKIN: No rash or changes in skin color or lesions. NEUROLOGIC: +headache, +weakness. No vertigo, loss of consciousness, or change in strength/sensation. No gait instability. HEMATOLOGIC/LYMPHATIC: No anemia, easy bruising/bleeding, or history of blood clots. ALLERGIC/IMMUNOLOGIC: No allergies All other systems reviewed and negative, or as documented in HPI. *Physical Exam Vital Signs Period Temp Pulse Resp BP Sys/Elam Pulse Ox Last 24 Hr 98 F-98.9 F 75-82 16-20 136-154/61-79 96-98 General: Well appearing, awake and alert, NAD. HEENT: NCAT, PERRL, EOMI, clear conjunctiva, anicteric, moist mucus membranes, clear oropharynx, no oral lesions.. Neck: neck supple, FROM Resp: CTAB, normal and even respirations, no respiratory distress CVS: RRR, no murmurs, 2+ peripheral pulses throughout, no peripheral edema Abdomen: soft, NTND, no peritoneal signs. Back: nontender, normal inspection and ROM MSK: no edema, TAVERA x4, ROM intact. No clubbing or cyanosis. normal bulk and tone. Extremities: no calf tenderness Neuro: Alert, oriented to person time and place. CN II-XII grossly intact. Strength prox and distally 5/5 throughout. Sensation grossly intact to light touch. TAVERA x4. No cerebellar signs, no dysmetria, bilateral finger to nose and heel to wells equal and symmetric. Speech clear. Skin: warm and well perfused, cap refill <2 sec, normal color Laboratory Results 06/06/18 06/06/18 11:11 11:11 PT with INR 11.30 INR 0.96 Sodium 141 Potassium 3.9 Chloride 106 Carbon Dioxide 28 Anion Gap 7 L BUN 23 H Creatinine 0.7 Creat Clearance w eGFR > 60 Random Glucose 86 Calcium 8.7 Total Bilirubin 0.5 AST 20 ALT 30 Alkaline Phosphatase 78 Creatine Kinase 89 Troponin I < 0.02 Total Protein 6.5 Albumin 3.8 06/06/18 11:11 RBC 3.87 MCV 93.6 MCHC 35.8 RDW 13.5 MPV 8.8 Neutrophils % 73.2 Lymphocytes % 15.7 Monocytes % 10.2 Eosinophils % 0.6 Basophils % 0.3 Medical Decision Making 82 year old female with a past medical history of HTN, HLD, and scoliosis admitted for evaluation of right leg pain. The patient reported that a headache began last night which radiated down her whole right side a/w right leg weakness. She noted associated weakness in her right LE and at first could not ambulate. She notes she is able to ambulate now but it is not her baseline. Right sided headache mild ache now, no visual or hearing disturbances, no vertigo or dizziness. Patient denies lightheadedness. Denies heavy lifting. Denies fever, chills. Denies chest pain, shortness of breath. Denies nausea, vomiting, diarrhea, abdominal pain. Denies lower extremity edema. Denies urinary symptoms. She completed MRI brain which did not show infarct. MRA also done and reviewed with patient and also without stenosis, aneurysm. Does have h/ o 3 prior lumbar surgeries, possibly related to this. Sees specialist as outpatient, ambulating with me this AM, advised her to follow up with her specialist as she was getting injections to lower back. Can consider CT L spine if further work up desired but is doing well this AM. May benefit from physical therapy. Monitor bp, maintain normotensive range. Continue Statin. Discussed with PCP.
[2018-06-07] MEDS: ASPIRIN COATED 81 MG TABLET.EC PO SCH (10:09)
[2018-06-07] MEDS ORDERED: MAG HYDROX/AL HYDROX/SIMETH 30 ML UNIT-DOSE CUP PO ONE (11:45)
--- NOTE | 2018-06-07 11:46 | EKG ---
Test Reason : Blood Pressure : / mmHG Vent. Rate : 064 BPM Atrial Rate : 064 BPM P-R Int : 158 ms QRS Dur : 086 ms QT Int : 426 ms P-R-T Axes : 073 -21 028 degrees QTc Int : 439 ms NORMAL SINUS RHYTHM NORMAL ECG WHEN COMPARED WITH ECG OF 06-JUN-2018 11:35, T WAVE INVERSION NO LONGER EVIDENT IN ANTERIOR LEADS Confirmed by LOLA TURPIN, TRAVON ([id number]) on 06/07/2018 11:46:18 AM Referred By: TIARRA SANTIAGO Confirmed By:TRAVON DAVILA MD
[2018-06-07] MEDS: PANTOPRAZOLE SODIUM 40 MG VIAL IVPUSH SCH (11:47)
[2018-06-07 12:41] LABS: ALBUMIN 3.5 g/dl (3.4-5.0); ALK PHOS 78 U/L (45-117); ANION GAP 5 MMOL/L (8-16); BILIRUBIN,TOTAL 0.5 mg/dL (0.2-1); BLOOD UREA NITROGEN 16 mg/dL (7-18); CALCIUM 8.5 mg/dL (8.5-10.1); CHLORIDE 107 mmol/L (98-107); CO2 29 mmol/L (21-32); CREATININE 0.7 mg/dL (0.55-1.3); GLUCOSE,RANDOM 85 mg/dL (74-106); SGOT/AST 21 U/L (15-37); SGPT/ALT 30 U/L (13-61); SODIUM 142 mmol/L (136-145); TOT PROT 6.3 g/dl (6.4-8.2)
[2018-06-07] MEDS: ACETAMINOPHEN 325 MG TABLET (FP) PO PRN (16:12)
--- NOTE | 2018-06-07 16:55 | CON.CARD ---
Consult Consult Specialty:: Cardiology Referred by:: Dr. Toscano Reason for Consultation:: abnormal ekg - History of Present Illness Chief Complaint: neck pain, leg weakness History of Present Illness: 82 year old female with a past medical history of HTN, HLD, and scoliosis admitted for evaluation of right leg pain, headaches. Neuro work up unrevealing. Pt had 1 ekg that showed a T wave inversion in lead V3 but subsequent ekg did not. pt seen and examined today in [facility]. she denies any chest pain, sob, palpitations. - History Source History Provided By: Patient Limitations to Obtaining History: No Limitations - Past Medical History Cardio/Vascular: Yes: HTN, Hyperlipdemia ...: No - Alcohol/Substance Use Hx Alcohol Use: No - Smoking History Smoking history: Never smoked Have you smoked in the past 12 months: No Aproximately how many cigarettes per day: 0 Home Medications - Allergies Allergies/Adverse Reactions: Allergies Allergy/AdvReac Type Severity Reaction Status Date / Time morphine Allergy hallucinati Verified 06/06/18 09:37 ons - Home Medications Home Medications: Ambulatory Orders Lisinopril [Prinivil] 10 mg PO DAILY 12/23/12 Atorvastatin Ca [Lipitor] 40 mg PO DAILY 06/06/18 Family Disease History - Family Disease History Family History: Denies Review of Systems - Review of Systems Constitutional: denies: No Symptoms, Chills, Diaphoresis, Fever, Lethargy, Loss of Appetite, Malaise, Night Sweats, Unintentional Wgt. Loss, Weakness, Other Eyes: denies: No Symptoms, Blind Spots, Blurred Vision, Double Vision, Eye Pain , Floaters, Photophobia, Recent Change in Vision, Other HENT: denies: No Symptoms, Difficult Swallowing, Ear Discharge, Ear Pain, Epistaxis, Gingival Bleeding, Hearing Loss, Mouth Swelling, Nasal Congestion, Ocular Prosthesis, Throat Pain, Toothache, Ringing in Ears, Other Neck: denies: No Symptoms, Decreased ROM, Lumps, Pain on Movement, Stiffness, Swollen Glands, Tenderness, Other Cardiovascular: denies: No Symptoms, Chest Pain, Edema, Palpitations, Shortness of Breath, Other Respiratory: denies: No Symptoms, Cough, Exercise Intolerance, Hemoptysis, Orthopnea, PND, Snoring, SOB, SOB on Exertion, Wheezing, Other Gastrointestinal: denies: No Symptoms, Abdominal Pain, Bloating, Constipation, Diarrhea, Dysphagia, Indigestion, Melena, Nausea, Rectal Bleeding, Vomiting, Vomiting Blood, Other Genitourinary: denies: No Symptoms, Burning, Discharge, Dysuria, Flank Pain, Frequency, Hematuria, Incontinence, Lesions, Menses, Pain, Testicular Mass, Testicular Pain, Testicular Swelling, Urgency, Vaginal Bleeding, Other Breasts: denies: No Symptoms Reported, See HPI, Breast Implants, Discharge from Nipple, Lumps, Pain, Skin Changes, Other Musculoskeletal: reports: Extremity Pain, Muscle Weakness. denies: No Symptoms , Back Pain, Crepitus, Decreased ROM, Joint Pain, Joint Swelling, Muscle Pain, Muscle Cramps, Other Integumentary: denies: No Symptoms, Blister, Bruising, Change in Color, Eczema, Erythema, Incision, Lesions, Lump, Pallor, Pruritis, Rash, Wound, Other Neurological: denies: No Symptoms, Change in LOC, Change in Speech, Confusion, Dizziness, Headache, Incoordination, Numbness, Parasthesia, Pre-Existing Deficit , Seizure, Syncope, Tremors, Unsteady Gait, Weakness, Other Endocrine: denies: No Symptoms, Excessive Sweating, Flushing, Increased Hunger, Increased Thirst, Intolerance to Cold, Intolerance to Heat, Unexplained Weight Gain, Unexplained Weight Loss, Other Hematology/Lymphatic: denies: No Symptoms, Easily Bruised, Excessive Bleeding, Swollen Glands, Other Psychiatric: denies: No Symptoms, Altered Sleep Pattern, Anxiety, Depression, Hallucinations, Panic, Paranoia, Suicidal, Other - Risk Factors Known Risk Factors: Yes: Age, Hypercholesterolemia, Hypertension Vital Signs: Vital Signs Temperature 98 F 06/06/18 21:49 Pulse Rate 74 06/07/18 08:00 Respiratory Rate 20 06/07/18 08:00 Blood Pressure 143/69 06/07/18 08:00 O2 Sat by Pulse Oximetry (%) 98 06/07/18 12:00 Constitutional: Yes: Well Nourished, No Distress, Calm Eyes: Yes: WNL, Conjunctiva Clear, EOM Intact HENT: Yes: WNL, Atraumatic, Normocephalic Neck: Yes: WNL, Supple, Trachea Midline Respiratory: Yes: WNL, Regular, CTA Bilaterally. No: Rales, Rhonchi, Wheezes Gastrointestinal: Yes: WNL, Normal Bowel Sounds, Soft. No: Distention, Tenderness Renal/: Yes: WNL Cardiovascular: Yes: WNL, Regular Rate and Rhythm. No: Bradycardia, Tachycardia , Pulse Irregular, Gallop, Rub, Varicosities JVD: No Carotid Bruit: No PMI: Non-Displaced Heart Sounds: Yes: S1, S2. No: Split S2, S3, S4, Clicks, Gallop, Rub, Bruit Murmur: No: Systolic Murmur, Diastolic Murmur Musculoskeletal: Yes: WNL Extremities: Yes: WNL Edema: No Peripheral Pulses WNL: Yes Neurological: Yes: Alert, Oriented Psychiatric: Yes: Alert, Oriented - Other Data Labs, Other Data: CBC, BMP 06/06/18 11:11 06/07/18 07:18 INR, PTT INR 0.96 (0.83-1.09) 06/06/18 11:11 Troponin, BNP 06/07/18 07:18 Troponin I < 0.02 Troponin, BNP 06/07/18 07:18 Troponin I < 0.02 ekgs nsr, 1 ekg with T wave inversion lead 3, others with normal t wave, likely lead placement, otherwise normal ecgs Imaging - Results Chest X-ray: Report Reviewed, Image Reviewed EKG: Report Reviewed, Image Reviewed Other: Report Reviewed, Image Reviewed Assessment/Plan 82 year old female with a past medical history of HTN, HLD, and scoliosis admitted for evaluation of right leg pain, headaches. Neuro work up unrevealing. Abnormal EKG Pt had 1 ekg that showed a T wave inversion in lead V3 but subsequent ekg did not. Likely lead misplacement of V3, even so EKG is nonspecific and essentially normal. she denies any chest pain, sob, palpitations. No additional inpatient cardiac work up is needed. Please call with any additional questions.
[2018-06-07] MEDS ORDERED: traMADol HCL 50 MG TABLET PO ONE (19:12)
[2018-06-07] MEDS: ATORVASTATIN CA 40 MG TABLET (FP) PO SCH (22:01)
[2018-06-08] MEDS: ACETAMINOPHEN 325 MG TABLET (FP) PO PRN (06:01)
--- NOTE | 2018-06-08 09:54 | PN ---
Progress Note (short form) - Note Progress Note: Neurology History of Present Illness 82 year old female with a past medical history of HTN, HLD, and scoliosis admitted for evaluation of right leg pain. The patient reported that a headache began last night which radiated down her whole right side a/w right leg weakness. She noted associated weakness in her right LE and at first could not ambulate. She notes she is able to ambulate now but it is not her baseline. Right sided headache mild ache now, no visual or hearing disturbances, no vertigo or dizziness. Patient denies lightheadedness. Denies heavy lifting. Denies fever, chills. Denies chest pain, shortness of breath. Denies nausea, vomiting, diarrhea, abdominal pain. Denies lower extremity edema. Denies urinary symptoms. She completed MRI brain which did not show infarct. MRA also done and reviewed with patient and also without stenosis, aneurysm. Does have h/ o 3 prior lumbar surgeries, possibly related to this. Sees specialist as outpatient, ambulating with me this AM, advised her to follow up with her specialist as she was getting injections to lower back. Is c/o headache this morning that is tension type. Tylenol has been ordered, will change this to Fioricet as possibly with migraine. Increased hydration recommended and cognitive rest. Allergies/Adverse Reactions: Allergies Allergy/AdvReac Type Severity Reaction Status Date / Time morphine Allergy hallucinati Verified 06/06/18 09:37 ons Active Medications Acetaminophen (Tylenol -) 650 mg PO Q6H PRN PRN Reason: PAIN OR FEVER Last Admin: 06/08/18 06:01 Dose: 650 mg Aspirin (Ecotrin -) 81 mg PO DAILY [facility] Last Admin: 06/07/18 10:09 Dose: 81 mg Atorvastatin Calcium (Lipitor -) 40 mg PO HS [facility] Last Admin: 06/07/18 22:01 Dose: 40 mg Pantoprazole Sodium (Protonix Iv) 40 mg IVPUSH DAILY [facility] Last Admin: 06/07/18 11:47 Dose: 40 mg *Physical Exam Vital Signs Period Temp Pulse Resp BP Sys/Elam Pulse Ox Last 24 Hr 98.1 F-98.7 F 76-79 20-20 137-149/62-65 98-98 General: Well appearing, awake and alert, NAD. HEENT: NCAT, PERRL, EOMI, clear conjunctiva, anicteric, moist mucus membranes, clear oropharynx, no oral lesions.. Neck: neck supple, FROM Resp: CTAB, normal and even respirations, no respiratory distress CVS: RRR, no murmurs, 2+ peripheral pulses throughout, no peripheral edema Abdomen: soft, NTND, no peritoneal signs. Back: nontender, normal inspection and ROM MSK: no edema, TAVEAR x4, ROM intact. No clubbing or cyanosis. normal bulk and tone. Extremities: no calf tenderness Neuro: Alert, oriented to person time and place. CN II-XII grossly intact. Strength prox and distally 5/5 throughout. Sensation grossly intact to light touch. TAVERA x4. No cerebellar signs, no dysmetria, bilateral finger to nose and heel to wells equal and symmetric. Speech clear. Skin: warm and well perfused, cap refill <2 sec, normal color CBCD WBC 4.5 K/mm3 (4.0-10.0) 06/06/18 11:11 RBC 3.87 M/mm3 (3.60-5.2) 06/06/18 11:11 Hgb 13.0 GM/dL (10.7-15.3) 06/06/18 11:11 Hct 36.2 % (32.4-45.2) 06/06/18 11:11 MCV 93.6 fl (80-96) 06/06/18 11:11 MCHC 35.8 g/dl (32.0-36.0) 06/06/18 11:11 RDW 13.5 % (11.6-15.6) 06/06/18 11:11 Plt Count 197 K/MM3 (134-434) 06/06/18 11:11 MPV 8.8 fl (7.5-11.1) 06/06/18 11:11 CMP Sodium 142 mmol/L (136-145) 06/07/18 07:18 Potassium 4.0 mmol/L (3.5-5.1) 06/07/18 07:18 Chloride 107 mmol/L (98-107) 06/07/18 07:18 Carbon Dioxide 29 mmol/L (21-32) 06/07/18 07:18 Anion Gap 5 MMOL/L (8-16) L 06/07/18 07:18 BUN 16 mg/dL (7-18) 06/07/18 07:18 Creatinine 0.7 mg/dL (0.55-1.3) 06/07/18 07:18 Creat Clearance w eGFR > 60 (>60) 06/07/18 07:18 Random Glucose 85 mg/dL (74-106) 06/07/18 07:18 Calcium 8.5 mg/dL (8.5-10.1) 06/07/18 07:18 Total Bilirubin 0.5 mg/dL (0.2-1) 06/07/18 07:18 AST 21 U/L (15-37) 06/07/18 07:18 ALT 30 U/L (13-61) 06/07/18 07:18 Alkaline Phosphatase 78 U/L (45-117) 06/07/18 07:18 Total Protein 6.3 g/dl (6.4-8.2) L 06/07/18 07:18 Albumin 3.5 g/dl (3.4-5.0) 06/07/18 07:18 CARDIAC ENZYMES Creatine Kinase 79 IU/L (26-192) 06/07/18 07:18 Troponin I < 0.02 ng/ml (0.00-0.05) 06/07/18 07:18 Medical Decision Making 82 year old female with a past medical history of HTN, HLD, and scoliosis admitted for evaluation of right leg pain. The patient reported that a headache began last night which radiated down her whole right side a/w right leg weakness. She noted associated weakness in her right LE and at first could not ambulate. She notes she is able to ambulate now but it is not her baseline. Right sided headache mild ache now, no visual or hearing disturbances, no vertigo or dizziness. Patient denies lightheadedness. Denies heavy lifting. Denies fever, chills. Denies chest pain, shortness of breath. Denies nausea, vomiting, diarrhea, abdominal pain. Denies lower extremity edema. Denies urinary symptoms. She completed MRI brain which did not show infarct. MRA also done and reviewed with patient and also without stenosis, aneurysm. Does have h/ o 3 prior lumbar surgeries, possibly related to this. Sees specialist as outpatient, ambulating with me this AM, advised her to follow up with her specialist as she was getting injections to lower back. Can consider CT L spine if further work up desired but is doing well this AM. May benefit from physical therapy. Monitor bp, maintain normotensive range. Continue Statin. Will adjust tylenol to fioricet for headache.
[2018-06-08] MEDS: PANTOPRAZOLE SODIUM 40 MG VIAL IVPUSH SCH (10:11)
[2018-06-08] MEDS: ASPIRIN COATED 81 MG TABLET.EC PO SCH (10:11)
[2018-06-08] MEDS ORDERED: ACETAMINOPHEN/CAFFEINE/BUTALBITAL 1 TAB PO PRN (10:32)
[2018-06-08] MEDS ORDERED: LISINOPRIL 10 MG TABLET (FP) PO SCH (11:00)
--- NOTE | 2018-06-08 11:02 | PN ---
Progress Note, Physician Chief Complaint: Right leg weakness - Current Medication List Current Medications: Active Medications Acetaminophen/Butalbital/Caffeine (Fioricet -) 1 tablet PO Q6H PRN PRN Reason: HEADACHE Aspirin (Ecotrin -) 81 mg PO DAILY [facility] Last Admin: 06/08/18 10:11 Dose: 81 mg Atorvastatin Calcium (Lipitor -) 40 mg PO HS [facility] Last Admin: 06/07/18 22:01 Dose: 40 mg Lisinopril (Prinivil) 10 mg PO DAILY [facility] Pantoprazole Sodium (Protonix Iv) 40 mg IVPUSH DAILY [facility] Last Admin: 06/08/18 10:11 Dose: 40 mg - Objective Vital Signs: Vital Signs Temperature 98.7 F 06/08/18 06:00 Pulse Rate 76 06/08/18 06:00 Respiratory Rate 20 06/08/18 06:00 Blood Pressure 149/65 06/08/18 06:00 O2 Sat by Pulse Oximetry (%) 98 06/08/18 04:00 Constitutional: Yes: Well Nourished, No Distress, Calm Cardiovascular: Yes: Regular Rate and Rhythm Gastrointestinal: Yes: Normal Bowel Sounds, Soft Musculoskeletal: Yes: Back Pain Extremities: Yes: WNL Edema: No Peripheral Pulses WNL: Yes Neurological: Yes: Alert, Oriented Psychiatric: Yes: Alert, Oriented Labs: CBC, BMP 06/06/18 11:11 06/07/18 07:18 INR, PTT INR 0.96 (0.83-1.09) 06/06/18 11:11 Problem List - Problems (1) Weakness of right lower extremity Assessment/Plan: -Seen by Neurology -MRI/MRA/CT head unremarkable -Work up outpatient fro lumbar radiculopathy Code(s): R29.898 - OT SYMPTOMS AND SIGNS INVOLVING THE MUSCULOSKELETAL SYSTEM (2) Headache Assessment/Plan: -much improved -restart lisinopril 10 mg po daily -monitor BP Code(s): R51 - HEADACHE Assessment/Plan see problem list Seen by Physical therapy-did well D/C home
--- NOTE | 2018-06-08 11:11 | DS ---
Physical Examination Vital Signs: Vital Signs Temperature 98.7 F 06/08/18 06:00 Pulse Rate 76 06/08/18 06:00 Respiratory Rate 20 06/08/18 06:00 Blood Pressure 149/65 06/08/18 06:00 O2 Sat by Pulse Oximetry (%) 98 06/08/18 04:00 Findings/Remarks: he patient is a 82 year old female with a past medical history of HTN, HLD, and scoliosis here today for evaluation of right leg pain. The patient reports that a headache began last night which radiated down her whole right side a/w right leg weakness. She notes associated weakness in her right LE and at first could not ambulate. She notes she is able to ambulate now but it is not her baseline. Right sided headache mild ache now, no visual or hearing disturbances, no vertigo or dizziness. Patient denies headache, lightheadedness. Denies heavy lifting. Denies fever, chills. Denies chest pain, shortness of breath. Denies nausea, vomiting, diarrhea, abdominal pain. Denies lower extremity edema. Denies urinary symptoms. Constitutional: Yes: Well Nourished, No Distress, Calm Cardiovascular: Yes: Regular Rate and Rhythm Respiratory: Yes: Regular Gastrointestinal: Yes: Normal Bowel Sounds Musculoskeletal: Yes: WNL Extremities: Yes: WNL Edema: No Peripheral Pulses WNL: No Neurological: Yes: Alert, Oriented Psychiatric: Yes: Alert, Oriented Labs: CBC, BMP 06/06/18 11:11 06/07/18 07:18 Discharge Summary Reason For Visit: WEAKNESS, RIGHT SIDED HEADACHE Current Active Problems Headache (Acute) T wave inversion in EKG (Acute) Weakness (Acute) Weakness of right lower extremity (Acute) Hospital Course: Laboratory Last Values WBC 4.5 K/mm3 (4.0-10.0) 06/06/18 11:11 RBC 3.87 M/mm3 (3.60-5.2) 06/06/18 11:11 Hgb 13.0 GM/dL (10.7-15.3) 06/06/18 11:11 Hct 36.2 % (32.4-45.2) 06/06/18 11:11 MCV 93.6 fl (80-96) 06/06/18 11:11 MCH 33.5 pg (25.7-33.7) 06/06/18 11:11 MCHC 35.8 g/dl (32.0-36.0) 06/06/18 11:11 RDW 13.5 % (11.6-15.6) 06/06/18 11:11 Plt Count 197 K/MM3 (134-434) 06/06/18 11:11 MPV 8.8 fl (7.5-11.1) 06/06/18 11:11 Absolute Neuts (auto) 3.3 K/mm3 (1.5-8.0) 06/06/18 11:11 Neutrophils % 73.2 % (42.8-82.8) 06/06/18 11:11 Lymphocytes % 15.7 % (8-40) 06/06/18 11:11 Monocytes % 10.2 % (3.8-10.2) 06/06/18 11:11 Eosinophils % 0.6 % (0-4.5) 06/06/18 11:11 Basophils % 0.3 % (0-2.0) 06/06/18 11:11 Nucleated RBC % 0 % (0-0) 06/06/18 11:11 PT with INR 11.30 SEC (9.7-13.0) 06/06/18 11:11 INR 0.96 (0.83-1.09) 06/06/18 11:11 Sodium 142 mmol/L (136-145) 06/07/18 07:18 Potassium 4.0 mmol/L (3.5-5.1) 06/07/18 07:18 Chloride 107 mmol/L (98-107) 06/07/18 07:18 Carbon Dioxide 29 mmol/L (21-32) 06/07/18 07:18 Anion Gap 5 MMOL/L (8-16) L 06/07/18 07:18 BUN 16 mg/dL (7-18) 06/07/18 07:18 Creatinine 0.7 mg/dL (0.55-1.3) 06/07/18 07:18 Creat Clearance w eGFR > 60 (>60) 06/07/18 07:18 Random Glucose 85 mg/dL (74-106) 06/07/18 07:18 Calcium 8.5 mg/dL (8.5-10.1) 06/07/18 07:18 Total Bilirubin 0.5 mg/dL (0.2-1) 06/07/18 07:18 AST 21 U/L (15-37) 06/07/18 07:18 ALT 30 U/L (13-61) 06/07/18 07:18 Alkaline Phosphatase 78 U/L (45-117) 06/07/18 07:18 Creatine Kinase 79 IU/L (26-192) 06/07/18 07:18 Troponin I < 0.02 ng/ml (0.00-0.05) 06/07/18 07:18 Total Protein 6.3 g/dl (6.4-8.2) L 06/07/18 07:18 Albumin 3.5 g/dl (3.4-5.0) 06/07/18 07:18 Triglycerides 75 mg/dL (0-150) 06/07/18 07:18 Cholesterol 167 mg/dL (50-200) 06/07/18 07:18 Total LDL Cholesterol 92 mg/dL (5-100) 06/07/18 07:18 HDL Cholesterol 68 mg/dL (40-60) H 06/07/18 07:18 Urine Color Ltyellow 06/06/18 13:20 Urine Appearance Clear 06/06/18 13:20 Urine pH 6.0 (5.0-8.0) 06/06/18 13:20 Ur Specific [place] 1.012 (1.010-1.035) 06/06/18 13:20 Urine Protein Negative (NEGATIVE) 06/06/18 13:20 Urine Glucose (UA) Negative (NEGATIVE) 06/06/18 13:20 Urine Ketones Negative (NEGATIVE) 06/06/18 13:20 Urine Blood Negative (NEGATIVE) 06/06/18 13:20 Urine Nitrite Negative (NEGATIVE) 06/06/18 13:20 Urine Bilirubin Negative (<2.0 mg/dL) 06/06/18 13:20 Urine Urobilinogen Negative mg/dL (0.2-1.0) 06/06/18 13:20 Ur Leukocyte Esterase Negative (NEGATIVE) 06/06/18 13:20 Condition: Stable - Instructions Diet, Activity, Other Instructions: Low sodium diet Follow up with PCP and Dr Gregory Alas (Neurology) within next 2 weeks Disposition: HOME - Home Medications Comprehensive Discharge Medication List: Ambulatory Orders Lisinopril [Prinivil] 10 mg PO DAILY 12/23/12 Atorvastatin Ca [Lipitor] 40 mg PO DAILY 06/06/18 Acetaminophen [Tylenol .Regular Strength -] 650 mg PO Q6H PRN tablet 06/08/18 Aspirin Coated [Ecotrin -] 81 mg PO DAILY #30 tablet.ec 06/08/18
[2018-06-08 11:31] VITALS: BP 118/79; PULSE 81; TEMP 97.9
== END 2018-06-08 13:17 | disposition home or self-care (01) | DRG 103 ==
LOC: JER 09:25 → JERBED 13:17 → J6S 21:13 → OBSVTOIN 06-08 07:19
PROVIDERS: ADMIT Family Medicine; ATTEND Family Medicine
DX: R51 Headache (principal); R07.89 Other chest pain; I10 Essential (primary) hypertension; E78.5 Hyperlipidemia, unspecified; R53.1 Weakness; R94.31 Abnormal electrocardiogram [ECG] [EKG]; M41.9 Scoliosis, unspecified; M54.2 Cervicalgia; R29.898 Other symptoms and signs involving the musculoskeletal system
CPT/HCPCS: 36415; 70450-TC; 70544-TC; 70551-TC; 71045-TC-FY; 72170-TC-FY; 80053; 80061; 81003; 82550; 83721; 84484; 85025; 85610; 93005; 93010; 97116-GP; 99283-25; G0378

== ENCOUNTER 2018-06-26 05:03 | Inpatient (IN) | payer OTHER, MEDICARE ==
[2018-06-26] MEDS ORDERED: SUCCINYLCHOLINE CHLORIDE 200 MG/10 ML VIAL ONE (12:46)
[2018-06-26] MEDS ORDERED: fentaNYL CITRATE 250 MCG/5 ML VIAL ONE (12:46)
[2018-06-26] MEDS ORDERED: DEXAMETHASONE SOD PHOSPHATE 4 MG/1 ML VIAL ONE (12:46)
[2018-06-26] MEDS ORDERED: LIDOCAINE HCL/PF 2% SDV 5ML VIAL ONE (12:46)
[2018-06-26] MEDS ORDERED: TRANEXAMIC ACID 1000 MG/10 ML VIAL ONE (12:46)
[2018-06-26] MEDS ORDERED: PROPOFOL 20 ML ONE ×13 (12:46→18:59)
[2018-06-26] MEDS ORDERED: ceFAZolin SODIUM 1 GM VIAL ONE ×2 (12:46→19:09)
[2018-06-26] MEDS ORDERED: ONDANSETRON 4 MG/2 ML VIAL ONE ×2 (12:46→19:20)
[2018-06-26] MEDS ORDERED: MIDAZOLAM HCL 2 MG/2 ML SINGLE DOSE VIAL ONE (12:46)
[2018-06-26] MEDS ORDERED: THROMBIN (BOVINE) 5,000 UNIT VIAL TP ONE ×2 (13:55→17:39)
[2018-06-26] MEDS ORDERED: VANCOMYCIN 1,000 MG VIAL (RESTRICTED TO ID ONLY) ONE (14:53)
[2018-06-26] MEDS ORDERED: VANCOMYCIN 1,000 MG VIAL (RESTRICTED TO ID ONLY) IVPB ONE (15:00)
[2018-06-26] MEDS ORDERED: ceFAZolin SODIUM 1 GM VIAL IVPB ONE (16:10)
[2018-06-26] MEDS ORDERED: THROMBIN (BOVINE) 20,000 UNIT VIAL TP ONE (16:17)
[2018-06-26] MEDS ORDERED: BENZOIN TINCTURE SWABSTICK TP ONE (19:22)
--- NOTE | 2018-06-26 19:36 | PN ---
Progress Note (short form) - Note Progress Note: 82F s/p C3-C4, C4-C5, C5-C6 discectomies; C4, C5 corpectomies; C3, C6 partial corpectomies; C3-C6 anterior cervical decompression and instrumented fusion POD #0. -Admit to ICU x 24 hrs. for airway observation; OK to discharge home or downgrade to floor 06/27/2018 if airway stable. -Maintain head of bed 60 degrees. -Pain medication: per anaesthesia team; no PEDIATRIC PHYSICAL THERAPIST; NO NSAID's. -DVT PPx: -Mechanical only: LIBBY's, SCD's. -Post-op Ancef x 2 doses. -f/u AM labs. -Incentive spirometry. -PT/OT/Rehab, OOB. -WBAT B/L UE & LE. -d/c Bonilla catheter at midnight; f/u TOV (8 hours max). -Keep dressing clean & dry. -No heavy lifting, bending or twisting. -Advance diet as tolerated. -B/L UE & LE NV checks. -Care per ICU & primary medical hospitalist teams. -Discharge planning: f/u [facility] [place] office Tuesday07/07/2018; call for appointment; . Nick Patino MD (Orthopaedic Surgery).
--- NOTE | 2018-06-26 19:39 | OP ---
Operative Note - Note: Operative Date: 06/26/18 Pre-Operative Diagnosis: 1. Cervical intervertebral disc disorder. 2. Cervical kyphosis. 3. Cervical spondylolisthesis. 4. Cervical radiculopathy. 5. Cervical myelopathy. 6. Functional & neurological decline 7. Balance disorder. Operation: 1. C3-C4, C4-C5, C5-C6 discectomies. 2. C4, C5 corpectomies. 3. C3 , C6 partial corpectomies. 4. C3-C6 anterior arthrodesis. 5. Insertional biomechanical device (C3-C6). 6. C3-C6 anterior instrumentation. 7. Bone autograft. 8. Bone allograft. 9. Intra-operative fluoroscopy. 10. Intra- operative neural monitoring Post-Operative Diagnosis: Same as Pre-op Surgeon: Nick Patino Casket Assembler Metal: Iam Patino Anesthesiologist/ANTIQUE FURNITURE RESTORER: Catherine Khan Anesthesia: General Specimens Removed: C3-C4, C4-C5, C5-C6 discs Estimated Blood Loss (mls): 200 Fluid Volume Replaced (mls): 2,000 (Crystalloid) Operative Report Dictated: Yes
[2018-06-26] MEDS ORDERED: ONDANSETRON 4 MG/2 ML VIAL IVPUSH PRN (19:40)
[2018-06-26] MEDS ORDERED: oxyCODONE HCL 5 MG TABLET PO PRN ×2 (19:40)
[2018-06-26] MEDS ORDERED: LACTATED RINGERS SOLUTION 1,000 ML IV SCH (19:45)
[2018-06-26] MEDS: ACETAMINOPHEN 1000 MG/100 ML VIAL (NON FORMULARY) IVPB PRN (19:50)
[2018-06-26] MEDS: HYDROmorphone HCl 2 MG/ML VIAL IVPB PRN (20:40)
[2018-06-26] MEDS ORDERED: HYDROmorphone HCl 2 MG/ML VIAL ONE (20:49)
--- NOTE | 2018-06-26 21:37 | CONSULT ---
Consult Consult Specialty:: Pulm/CCM Referred by:: Dr. Patino Reason for Consultation:: Post-op care - History of Present Illness Chief Complaint: s/p discectomy History of Present Illness: 82 year old female with a past medical history of HTN and HLD s/p C3-C4, C4-C5, C5-C6 discectomies; C4, C5 corpectomies; C3, C6 partial corpectomies; C3-C6 anterior cervical decompression and instrumented fusion. - History Source History Provided By: Patient Limitations to Obtaining History: No Limitations - Past Medical History Cardio/Vascular: Yes: HTN, Hyperlipdemia ...: No - Alcohol/Substance Use Hx Alcohol Use: No - Smoking History Smoking history: Never smoked Have you smoked in the past 12 months: No Aproximately how many cigarettes per day: 0 Home Medications - Allergies Allergies/Adverse Reactions: Allergies Allergy/AdvReac Type Severity Reaction Status Date / Time morphine Allergy hallucinati Verified 06/21/18 15:39 ons oxycodone Allergy Difficulty Verified 06/26/18 12:38 Breathing - Home Medications Home Medications: Ambulatory Orders Lisinopril [Prinivil] 10 mg PO DAILY 12/23/12 Atorvastatin Ca [Lipitor] 40 mg PO DAILY 06/06/18 Ibuprofen 400 mg PO PRN PRN 06/21/18 Review of Systems - Review of Systems Constitutional: reports: No Symptoms Neck: reports: Decreased ROM Cardiovascular: reports: No Symptoms Respiratory: reports: No Symptoms Gastrointestinal: reports: No Symptoms Musculoskeletal: reports: Back Pain Integumentary: reports: No Symptoms Physical Exam Vital Signs: Vital Signs Temperature 98.6 F 06/26/18 19:40 Pulse Rate 83 06/26/18 20:10 Respiratory Rate 18 06/26/18 20:10 Blood Pressure 159/64 06/26/18 20:10 O2 Sat by Pulse Oximetry (%) 97 06/26/18 20:10 Constitutional: Yes: Calm, Other (in pain) HENT: Yes: Atraumatic, Normocephalic Neck: Yes: Decreased ROM Cardiovascular: Yes: Regular Rate and Rhythm, S1, S2 Respiratory: Yes: Regular, CTA Bilaterally Gastrointestinal: Yes: Normal Bowel Sounds, Soft. No: Distention, Tenderness Musculoskeletal: Yes: Back Pain Extremities: Yes: Other (limited ROM due to surgery) Edema: No Neurological: Yes: Alert, Oriented Assessment/Plan 82 yo F s/p back surgery admitted to ICU for post-op care: A: Cervical intervertebral disc disorder Cervical spondylolisthesis Cervical radiculopathy Cervical myelopathy HTN HLD P: ICU stay x 24 h to monitor airway then transfer to med-surg on 06/27 head elevation 60 degrees Dilaudid for pain, no NSAID no LINE PREP COOK SCDs Incentive spirometry. PT/OT OOB Advance diet as tolerated Marlo Yusuf MD PGY3 Visit type - Emergency Visit Emergency Visit: Yes ED Registration Date: 06/26/18 Care time: The patient presented to the Emergency Department on the above date and was hospitalized for further evaluation of their emergent condition. - New Patient This patient is new to me today: Yes Date on this admission: 06/26/18 - Critical Care Critical Care patient: Yes Total Critical Care Time (in minutes): 35 Critical Care Statement: The care of this patient involved high complexity decision making to prevent further life threatening deterioration of the patient 's condition and/or to evaluate & treat vital organ system(s) failure or risk of failure.
[2018-06-27] MEDS: ACETAMINOPHEN 325 MG TABLET (FP) PO SCH ×5 (02:01→19:56)
[2018-06-27] MEDS: HYDROmorphone HCl 2 MG/ML VIAL IVPB PRN (02:13)
[2018-06-27] MEDS: ACETAMINOPHEN 1000 MG/100 ML VIAL (NON FORMULARY) IVPB PRN (02:16)
[2018-06-27] MEDS ORDERED: CEFAZOLIN 1 GM in DEXTROSE 5%-WATER - 50 ML IVPB SCH (03:00)
[2018-06-27] MEDS: CEFAZOLIN 1 GM/D5W 1 GM/50 ML BAG IVPB SCH ×3 (03:15→11:10)
[2018-06-27 06:25] LABS: HEMATOCRIT 35.7 % (32.4-45.2); HEMOGLOBIN 11.9 GM/dL (10.7-15.3); MCH 31.7 pg (25.7-33.7); MCHC 33.3 g/dl (32.0-36.0); MEAN CELL VOLUME 95.4 fl (80-96); MEAN PLT VOLUME 8.8 fl (7.5-11.1); PLATELET COUNT 174 K/MM3 (134-434); RBC 3.74 M/mm3 (3.60-5.2); RDW 13.5 % (11.6-15.6); WHITE BLOOD COUNT 9.3 K/mm3 (4.0-10.0)
[2018-06-27 07:06] LABS: ANION GAP 8 MMOL/L (8-16); BLOOD UREA NITROGEN 15 mg/dL (7-18); CALCIUM 8.2 mg/dL (8.5-10.1); CHLORIDE 100 mmol/L (98-107); CO2 25 mmol/L (21-32); CREATININE 0.6 mg/dL (0.55-1.3); GLUCOSE,RANDOM 152 mg/dL (74-106); POTASSIUM 3.7 mmol/L (3.5-5.1); SODIUM 133 mmol/L (136-145)
--- NOTE | 2018-06-27 08:10 | OP ---
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 OPERATION PERFORMED: 1. C3-4, C4-5, C5-6 diskectomies. 2. Corpectomy, C4, C5. 3. Partial corpectomy, C3; partial corpectomy, C6. 4. Seating of cage, C3 to C6. 5. Anterior plating, C3 to C6. 6. Autologous bone grafting. 7. Anterior arthrodesis, C3 to C6. ANESTHESIA: General. ANTIBIOTICS GIVEN: Kefzol 2 g and vancomycin 1 g preoperative, Kefzol 1 g given at the time of the end of the procedure, Decadron 10 mg given. Neuromonitoring utilized. Operation performed under light microscopy. Fluoroscopic evaluation available intraoperatively. Patient correctly identified, brought to the operating room, placed supine on the operating room table. Under general anesthesia, a transverse, rolled-up towel placed behind the scapulae to help facilitate neck extension. Neck was stable in a doughnut ring. Draping was routine with Betadine scrub solution, wiped off with alcohol, DuraPrep applied. Once this had been performed, a window drape applied over the neck. At the level of the cricothyroid interval in the lines of [place], an incision was made obliquely and across the midline. The dissection was taken to platysma. Platysma was transected. The investing layer of fascia was split longitudinally cranially and caudally. With digital dissection lateral to the strap muscles, the vertebral bodies were readily palpable. The bulging disks were readily palpable. Using an [facility], the pharynx combined with the tracheal elements was retracted to the left, and the carotid sheath to the right. This gave easy access to the raphe, the longus colli muscles. The longus colli muscles were then dissected off the vertebral bodies from C3 to C6 using unipolar Bovie. All hemostasis achieved in doing this. This enabled the teeth of the self-retaining retractors to be seated in the muscle, keeping the carotid sheath out of harm's way. Each disk was dealt with separately but in the identical manner. The annulus was incised using unipolar Bovie. All disk material was scooped out using a curette. Material sent to the lab for histopathology. Once that had been performed, using a keisha-tip matchstick tiffanie, 2 longitudinal gutters were cut into the lateral side of the vertebral bodies on the left- and right-hand side right down to the posterior bone bed, and the bone in between was then delivered using [place] rongeurs for bone grafting purposes. The entire bone block was then finally removed with a 40-mm rough tiffanie, and this enabled us then to square off the endplates for ultimate fixation of a cage. The endplates were healthy bleeding bone. No soft tissue left behind. Once this had been performed, the posterior longitudinal ligament was carefully dissected off the theca and resected completely. That is from cranial to caudal and from left to right. Each interspace was palpated with a ball-tip probe, found to be capacious and wide open. A size 42-mm [place] titanium cage was then selected after measuring the interspace deficits. This was then a lordosis cage packed with the autologous bone graft that we had harvested. This was expanded with some allograft putty and gently tapped into position. Prior to the insertion of the cage, [place] pin distractors had been seated in the C3 and C6 bone bed, distracted maximally; the cage inserted; and the distraction device relaxed. Ligamentotaxis collapsing the bone bed onto the cage. Solid fixation achieved. The pins were removed. The holes were filled with bone graft, and the size 43 Simplicity plate applied to the bone bed anteriorly. Two screws seated in C3, two screws seated in C6. Verification of screw fixation on lateral fluoroscopic x-ray. Clinical appreciation of fixation of screws was excellent. The locking device captured the screw heads. The wounds were thoroughly lavaged. No complications. Neuromonitoring remained stable throughout. CLOSURE: Investing layer of fascia with number 2-0 Vicryl, subcutaneous 2-0 Vicryl, skin 3-0 Monocryl with Steri-Strips. DRAINAGE: Nil. The wound was bone dry by the time of closure. OVERALL COMMENT: Difficult procedure made easy, went well. No complications. MD VERONICA Toribio/[id number]
[2018-06-27] MEDS: LISINOPRIL 10 MG TABLET (FP) PO SCH (09:30)
--- NOTE | 2018-06-27 11:21 | PN ---
Progress Note (short form) - Note Progress Note: Post op day#1.S/p C4-C5 corpectomy under Ga uneventful.P82,Bp 141/68 and Spo2 100 on RA.Patient stable c/o pain score of 3-4/10 for which she is on medication.No any anesthesia related problem.Patient Dc from the anesthesia care.
[2018-06-27] MEDS: traMADol HCL 50 MG TABLET PO PRN ×2 (11:59→21:31)
--- NOTE | 2018-06-27 12:09 | PN ---
Physical Exam: SUBJECTIVE: Patient seen and examined at bedside. Recovering well from surgery. C/o residual pain at surgical site with good control on medication, additionally c/o nausea. OBJECTIVE: Vital Signs Period Temp Pulse Resp BP Sys/Elam Pulse Ox Last 24 Hr 98.4 F-98.7 F 73-97 16-20 99-159/46-76 93-100 GENERAL: A&Ox3, NAD HEAD: NC/AT EYES: PERRLA, EOMI ENT: MMM NECK: anterior cervical dressing c/d/i LUNGS: CTA b/l HEART: RRR no m/r/g ABDOMEN: +bs, soft, NT, ND EXTREMITIES: 2+ pulses, warm, well-perfused, no edema. 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 SKIN: Warm, dry, normal turgor, no rashes or lesions noted Laboratory Results - last 24 hr 06/26/18 06/27/18 06/27/18 11:35 05:15 05:15 WBC 9.3 RBC 3.74 Hgb 11.9 Hct 35.7 MCV 95.4 MCH 31.7 MCHC 33.3 RDW 13.5 Plt Count 174 MPV 8.8 Sodium 133 L Potassium 3.7 Chloride 100 Carbon Dioxide 25 Anion Gap 8 BUN 15 Creatinine 0.6 Creat Clearance w eGFR > 60 Random Glucose 152 H Calcium 8.2 L Blood Type A POSITIVE Antibody Screen Negative Active Medications Generic Name Dose Route Start Last Admin Trade Name Freq PRN Reason Stop Dose Admin Acetaminophen 650 mg 06/26/18 20:00 06/27/18 09:22 Tylenol - PO 650 mg Q6H FANNY Administration Acetaminophen 1,000 mg 06/26/18 20:03 06/27/18 02:16 Ofirmev Injection - IVPB 1,000 mg Q6H PRN Administration PAIN LEVEL 4 - 6 Hydromorphone HCl 1 mg 06/26/18 20:02 06/27/18 02:13 Dilaudid Vial - IVPB 1 mg Q4H PRN Administration PAIN LEVEL 7 - 10 Lactated Ringer's 1,000 mls @ 100 mls/hr 06/26/18 19:45 06/27/18 06:58 Lactated Ringers Solution IV 100 mls/hr ASDIR FANNY Administration Lisinopril 10 mg 06/27/18 10:00 06/27/18 09:30 Prinivil PO 10 mg DAILY FANNY Administration Ondansetron HCl 4 mg 06/26/18 19:40 06/27/18 07:58 Zofran Injection IVPUSH 4 mg Q6H PRN Administration NAUSEA AND/OR VOMITING Tramadol HCl 50 mg 06/26/18 19:40 Ultram - PO Q6H PRN PAIN LEVEL 1-5 ASSESSMENT/PLAN: 82 y/o F w/ PMHx HTN, HLD, POD 1 s/p C3-C6 discectomies, C4-C5 corpectomies, C3 and C6 partial corpectomies, C3-C6 anterior cervical decompression and fusion. #POD1 s/p C3-C6 anterior cervical neuroSx -cont Ancef -cont pain control w/ dilaudid, tramadol, acetaminophen PRN -avoid NSAIDs per NeuroSx -elevate HOB 45 -neuro check qshift -adv diet as tolerated -dc arredondo when ambulating -PT -incentive spirometry -ready for transfer to floor #FEN -LR 100 -monitor and replete lytes as necessary -regular soft diet #PPx -SCDs, no pharmacologic AC -GI: not indicated #code -full #dispo -transfer to med/surg Visit type - Emergency Visit Emergency Visit: Yes ED Registration Date: 06/26/18 Care time: The patient presented to the Emergency Department on the above date and was hospitalized for further evaluation of their emergent condition. - New Patient This patient is new to me today: Yes Date on this admission: 06/27/18 - Critical Care Critical Care patient: No
--- NOTE | 2018-06-27 12:14 | PN ---
Teaching Attending Note Name of Resident: Iam Ash ATTENDING PHYSICIAN STATEMENT I saw and evaluated the patient. I reviewed the resident's note and discussed the case with the resident. I agree with the resident's findings and plan as documented. SUBJECTIVE: Pt seen and examined in the ICU. Some nausea earlier but improved. Pain controlled. OBJECTIVE: Vital Signs Period Temp Pulse Resp BP Sys/Elam Pulse Ox Last 24 Hr 98.4 F-98.7 F 73-97 16-20 99-159/46-76 93-100 Intake & Output 06/24/18 06/25/18 06/26/18 06/27/18 23:59 23:59 23:59 23:59 Intake Total 2200 Output Total 900 900 Balance 1300 -900 Weight 67.358 kg Gen: NAD at rest Heart: RRR Lung: decreased breath sounds at the bases Abd: soft, nontender Ext: no edema CBC, BMP 06/27/18 05:15 06/27/18 05:15 Active Medications Acetaminophen (Tylenol -) 650 mg PO Q6H [facility] Last Admin: 06/27/18 09:22 Dose: 650 mg Acetaminophen (Ofirmev Injection -) 1,000 mg IVPB Q6H PRN PRN Reason: PAIN LEVEL 4 - 6 Last Admin: 06/27/18 02:16 Dose: 1,000 mg Hydromorphone HCl (Dilaudid Vial -) 1 mg IVPB Q4H PRN PRN Reason: PAIN LEVEL 7 - 10 Last Admin: 06/27/18 02:13 Dose: 1 mg Lactated Ringer's (Lactated Ringers Solution) 1,000 mls @ 100 mls/hr IV ASDIR [facility] Last Admin: 06/27/18 06:58 Dose: 100 mls/hr Lisinopril (Prinivil) 10 mg PO DAILY [facility] Last Admin: 06/27/18 09:30 Dose: 10 mg Ondansetron HCl (Zofran Injection) 4 mg IVPUSH Q6H PRN PRN Reason: NAUSEA AND/OR VOMITING Last Admin: 06/27/18 07:58 Dose: 4 mg Tramadol HCl (Ultram -) 50 mg PO Q6H PRN PRN Reason: PAIN LEVEL 1-5 Last Admin: 06/27/18 11:59 Dose: 50 mg ASSESSMENT AND PLAN: Cervical Intervertebral Disc Disorder with Kyphosis/Spondylolisthesis/ Radiculopathy/Myelopathy s/p C3-C4, C4-C5, C5-C6 Discectomies/Anterior Instrumentation/Insertion Biomechanical Device HTN Hyperlipidemia - pain control - incentive spirometry - antiemetics - PO as tolerated - d/c arredondo when OOB - DVT prophylaxis - can monitor on floor
[2018-06-27] MEDS ORDERED: PNEUMOCOCCAL 23 VACCINE 0.5 ML VIAL IM ONE (12:29)
[2018-06-27] MEDS: PANTOPRAZOLE 40 MG TABLET (FP) PO SCH (14:45)
[2018-06-28] MEDS: ACETAMINOPHEN 325 MG TABLET (FP) PO SCH ×4 (02:07→21:46)
[2018-06-28] MEDS: HYDROmorphone HCl 2 MG/ML VIAL IVPB PRN ×2 (02:42→21:47)
[2018-06-28 06:00] LABS: BASO % 0.2 % (0-2.0); EOS % 0.1 % (0-4.5); HEMATOCRIT 34.8 % (32.4-45.2); HEMOGLOBIN 11.6 GM/dL (10.7-15.3); LYMPH % 8.2 % (8-40); MCH 31.8 pg (25.7-33.7); MCHC 33.2 g/dl (32.0-36.0); MEAN CELL VOLUME 95.6 fl (80-96); MONO % 11.4 % (3.8-10.2); NEUT % 80.1 % (42.8-82.8); PLATELET COUNT 172 K/MM3 (134-434); RBC 3.64 M/mm3 (3.60-5.2); RDW 13.5 % (11.6-15.6)
[2018-06-28 06:35] LABS: ANION GAP 2 MMOL/L (8-16); BLOOD UREA NITROGEN 14 mg/dL (7-18); CALCIUM 8.2 mg/dL (8.5-10.1); CHLORIDE 106 mmol/L (98-107); CO2 33 mmol/L (21-32); CREATININE 0.6 mg/dL (0.55-1.3); GLUCOSE,RANDOM 116 mg/dL (74-106); MAGNESIUM 2.1 mg/dL (1.8-2.4); PHOSPHOROUS 2.7 mg/dL (2.5-4.9); POTASSIUM 3.9 mmol/L (3.5-5.1); SODIUM 140 mmol/L (136-145)
--- NOTE | 2018-06-28 08:53 | PN ---
Physical Exam: SUBJECTIVE: Patient seen and examined at bedside. Recovering well from surgery. C/o residual pain at surgical site. Nausea resolved. Has had flatus, no BM as yet. OBJECTIVE: Vital Signs Period Temp Pulse Resp BP Sys/Elam Pulse Ox Last 24 Hr 98.6 F-99.1 F 73-97 13-20 118-159/57-80 90-100 GENERAL: A&Ox3, NAD HEAD: NC/AT EYES: PERRLA, EOMI ENT: MMM NECK: anterior cervical dressing c/d/i LUNGS: CTA b/l HEART: RRR no m/r/g ABDOMEN: +bs, soft, NT, ND EXTREMITIES: 2+ pulses, warm, well-perfused, no edema. 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 SKIN: Warm, dry, normal turgor, no rashes or lesions noted Laboratory Results - last 24 hr 06/28/18 06/28/18 05:30 05:30 WBC 8.0 RBC 3.64 Hgb 11.6 Hct 34.8 MCV 95.6 MCH 31.8 MCHC 33.2 RDW 13.5 Plt Count 172 MPV 9.0 Absolute Neuts (auto) 6.4 Neutrophils % 80.1 Lymphocytes % 8.2 D Monocytes % 11.4 H Eosinophils % 0.1 D Basophils % 0.2 Nucleated RBC % 0 Sodium 140 Potassium 3.9 Chloride 106 Carbon Dioxide 33 H Anion Gap 2 L BUN 14 Creatinine 0.6 Creat Clearance w eGFR > 60 Random Glucose 116 H Calcium 8.2 L Phosphorus 2.7 Magnesium 2.1 Active Medications Generic Name Dose Route Start Last Admin Trade Name Fritzq PRN Reason Stop Dose Admin Acetaminophen 650 mg 06/26/18 20:00 06/28/18 07:56 Tylenol - PO 650 mg Q6H FANNY Administration Hydromorphone HCl 1 mg 06/26/18 20:02 06/28/18 02:42 Dilaudid Vial - IVPB 1 mg Q4H PRN Administration PAIN LEVEL 7 - 10 Lisinopril 10 mg 06/27/18 10:00 06/27/18 09:30 Prinivil PO 10 mg DAILY FANNY Administration Ondansetron HCl 4 mg 06/26/18 19:40 06/27/18 07:58 Zofran Injection IVPUSH 4 mg Q6H PRN Administration NAUSEA AND/OR VOMITING Pantoprazole Sodium 40 mg 06/27/18 14:00 06/27/18 14:45 Protonix - PO 40 mg DAILY FANNY Administration Tramadol HCl 50 mg 06/26/18 19:40 06/27/18 21:31 Ultram - PO 50 mg Q6H PRN Administration PAIN LEVEL 1-5 ASSESSMENT/PLAN: 82 y/o F w/ PMHx HTN, HLD, POD 2 s/p C3-C6 discectomies, C4-C5 corpectomies, C3 and C6 partial corpectomies, C3-C6 anterior cervical decompression and fusion. #POD2 s/p C3-C6 anterior cervical neuroSx -ABx discontinued -cont pain control w/ dilaudid, tramadol, acetaminophen PRN -avoid NSAIDs per NeuroSx -elevate HOB 45 -neuro check qshift -adv diet as tolerated -dc arredondo when ambulating -PT -incentive spirometry -ready for transfer to floor #FEN -LR 100 -monitor and replete lytes as necessary -regular soft diet #PPx -SCDs, no pharmacologic AC -GI: not indicated #code -full #dispo -transfer to med/surg Visit type - Emergency Visit Emergency Visit: No - New Patient This patient is new to me today: No - Critical Care Critical Care patient: Yes Total Critical Care Time (in minutes): 40 Critical Care Statement: The care of this patient involved high complexity decision making to prevent further life threatening deterioration of the patient 's condition and/or to evaluate & treat vital organ system(s) failure or risk of failure.
[2018-06-28] MEDS: LISINOPRIL 10 MG TABLET (FP) PO SCH (09:32)
[2018-06-28] MEDS: PANTOPRAZOLE 40 MG TABLET (FP) PO SCH (09:34)
--- NOTE | 2018-06-28 11:56 | PN ---
Teaching Attending Note Name of Resident: Iam Ash ATTENDING PHYSICIAN STATEMENT I saw and evaluated the patient. I reviewed the resident's note and discussed the case with the resident. I agree with the resident's findings and plan as documented. SUBJECTIVE: Pt seen and examined in the ICU. Pain controlled. Tolerating PO. No nausea or vomiting. OBJECTIVE: Vital Signs Period Temp Pulse Resp BP Sys/Elam Pulse Ox Last 24 Hr 98.6 F-99.1 F 73-90 13-20 118-159/57-80 90-98 Intake & Output 06/25/18 06/26/18 06/27/18 06/28/18 23:59 23:59 23:59 23:59 Intake Total 2200 1480 140 Output Total 900 2852 Balance 1300 -1372 140 Weight 67.358 kg Gen: NAD at rest Heart: RRR Lung: decreased breath sounds at the bases Abd: soft, nontender Ext: no edema CBC, BMP 06/28/18 05:30 06/28/18 05:30 Active Medications Acetaminophen (Tylenol -) 650 mg PO Q6H [facility] Last Admin: 06/28/18 07:56 Dose: 650 mg Hydromorphone HCl (Dilaudid Vial -) 1 mg IVPB Q4H PRN PRN Reason: PAIN LEVEL 7 - 10 Last Admin: 06/28/18 02:42 Dose: 1 mg Lisinopril (Prinivil) 10 mg PO DAILY [facility] Last Admin: 06/28/18 09:32 Dose: 10 mg Ondansetron HCl (Zofran Injection) 4 mg IVPUSH Q6H PRN PRN Reason: NAUSEA AND/OR VOMITING Last Admin: 06/27/18 07:58 Dose: 4 mg Pantoprazole Sodium (Protonix -) 40 mg PO DAILY [facility] Last Admin: 06/28/18 09:34 Dose: 40 mg Tramadol HCl (Ultram -) 50 mg PO Q6H PRN PRN Reason: PAIN LEVEL 1-5 Last Admin: 06/27/18 21:31 Dose: 50 mg ASSESSMENT AND PLAN: Cervical Intervertebral Disc Disorder with Kyphosis/Spondylolisthesis/ Radiculopathy/Myelopathy s/p C3-C4, C4-C5, C5-C6 Discectomies/Anterior Instrumentation/Insertion Biomechanical Device HTN Hyperlipidemia - pain control - incentive spirometry - antiemetics as needed - PO as tolerated - rehab/PT - DVT prophylaxis - can monitor on floor
[2018-06-28] MEDS: traMADol HCL 50 MG TABLET PO PRN (15:54)
--- NOTE | 2018-06-28 16:56 | PATH ---
Surgical Pathology Report Patient Name: ERIC PAINTER [facility]. Rec. #: [id number] /Age/Gender: 1935 (Age: 82) / F Account: [id number] Location: [facility] MOBILITY MANAGER Taken: 06/26/2018 Received: 06/27/2018 Reported: 06/28/2018 Physicians: Nick Patino M.D. Specimen(s) Received DISC C4-C5 Clinical History Cervicalgia Final Diagnosis DISC, C4-C5, CORPECTOMY: FRAGMENTS OF BENIGN INTERVERTEBRAL DISC TISSUE, BONE, AND SKELETAL MUSCLE. Electronically Signed Vijaya Bernard M.D. Gross Description Received in formalin labeled "disc C4-C5," is a 4.0 x 3.2 x 0.3 cm aggregate of fatima brown fragments of fibrocartilaginous tissue. A customer response representative portion is submitted in one cassette. 06/27/201806/27/2018
[2018-06-28 17:18] VITALS: BMI 24.6
[2018-06-29] MEDS: ACETAMINOPHEN 325 MG TABLET (FP) PO SCH ×5 (02:30→23:24)
[2018-06-29] MEDS: HYDROmorphone HCl 2 MG/ML VIAL IVPB PRN (04:53)
[2018-06-29 07:58] LABS: BASO % 0.2 % (0-2.0); HEMATOCRIT 34.1 % (32.4-45.2); LYMPH % 12.8 % (8-40); MCH 33.8 pg (25.7-33.7); MCHC 35.2 g/dl (32.0-36.0); MEAN CELL VOLUME 95.9 fl (80-96); MEAN PLT VOLUME 9.2 fl (7.5-11.1); MONO % 11.3 % (3.8-10.2); NEUT % 74.7 % (42.8-82.8); PLATELET COUNT 189 K/MM3 (134-434); RBC 3.55 M/mm3 (3.60-5.2); RDW 13.5 % (11.6-15.6); WHITE BLOOD COUNT 6.3 K/mm3 (4.0-10.0)
[2018-06-29 08:00] LABS: ANION GAP 5 MMOL/L (8-16); BLOOD UREA NITROGEN 17 mg/dL (7-18); CALCIUM 8.6 mg/dL (8.5-10.1); CHLORIDE 102 mmol/L (98-107); CO2 31 mmol/L (21-32); CREATININE 0.6 mg/dL (0.55-1.3); GLUCOSE,RANDOM 121 mg/dL (74-106); MAGNESIUM 2.1 mg/dL (1.8-2.4); PHOSPHOROUS 2.2 mg/dL (2.5-4.9); POTASSIUM 3.9 mmol/L (3.5-5.1); SODIUM 138 mmol/L (136-145)
[2018-06-29] MEDS ORDERED: ONDANSETRON 4 MG/2 ML VIAL IVPUSH PRN (08:26)
[2018-06-29] MEDS ORDERED: HYDROmorphone HCl 2 MG/ML VIAL IVPB PRN (08:56)
[2018-06-29] MEDS: traMADol HCL 50 MG TABLET PO PRN (10:33)
[2018-06-29] MEDS: LISINOPRIL 10 MG TABLET (FP) PO SCH (10:33)
[2018-06-29] MEDS: PANTOPRAZOLE 40 MG TABLET (FP) PO SCH (10:33)
[2018-06-29] MEDS ORDERED: PT OWN MED DRAWER 7, Y5N ONE (18:18)
[2018-06-30] MEDS: traMADol HCL 50 MG TABLET PO PRN ×4 (01:27→22:09)
[2018-06-30] MEDS: ACETAMINOPHEN 325 MG TABLET (FP) PO SCH ×3 (06:07→20:25)
[2018-06-30] MEDS: PANTOPRAZOLE 40 MG TABLET (FP) PO SCH (11:15)
[2018-06-30] MEDS: LISINOPRIL 10 MG TABLET (FP) PO SCH (11:18)
[2018-07-01] MEDS: ACETAMINOPHEN 325 MG TABLET (FP) PO SCH ×4 (00:23→18:24)
[2018-07-01] MEDS: PANTOPRAZOLE 40 MG TABLET (FP) PO SCH (09:43)
[2018-07-01] MEDS: LISINOPRIL 10 MG TABLET (FP) PO SCH (09:43)
[2018-07-02] MEDS: ACETAMINOPHEN 325 MG TABLET (FP) PO SCH ×4 (00:16→17:13)
[2018-07-02] MEDS: traMADol HCL 50 MG TABLET PO PRN (01:19)
[2018-07-02] MEDS: PANTOPRAZOLE 40 MG TABLET (FP) PO SCH (09:29)
[2018-07-02] MEDS: LISINOPRIL 10 MG TABLET (FP) PO SCH (09:29)
[2018-07-03] MEDS: ACETAMINOPHEN 325 MG TABLET (FP) PO SCH (00:47)
[2018-07-03] MEDS: traMADol HCL 50 MG TABLET PO PRN ×2 (01:39→12:40)
[2018-07-03] MEDS ORDERED: ACETAMINOPHEN 325 MG TABLET (FP) PO PRN (01:50)
[2018-07-03] MEDS ORDERED: ACETAMINOPHEN 325 MG TABLET (FP) PO SCH (04:00)
[2018-07-03] MEDS: LISINOPRIL 10 MG TABLET (FP) PO SCH (10:10)
[2018-07-03] MEDS: PANTOPRAZOLE 40 MG TABLET (FP) PO SCH (10:10)
--- NOTE | 2018-07-03 16:33 | DS ---
Physical Exam: SUBJECTIVE: Patient seen and examined OBJECTIVE Patient denies shortness of breath, chest pain, dizziness, palpitations or pain to surgical site. She is sitting in chair with daughter at bedside. She is afebrile. Pulse 104 and BP 138/73. Vital Signs Period Temp Pulse Resp BP Sys/Elam Pulse Ox Last 24 Hr 98.2 F-98.8 F 80-108 18-20 129-150/73-82 99 PHYSICAL EXAM GENERAL: patient is awake, alert, and fully oriented, in no acute distress. HEAD: normal with no signs of trauma. NECK: limited ROM, dressing clean, dry amd intact with no bleeding or drainage LUNGS: breath sounds equal, clear to auscultation bilaterally, no wheezes, no crackles, no accessory muscle use HEART: regular rate and rhythm, tachycardic, S1, S2 ABDOMEN: soft, nontender, nondistended, normoactive bowel sounds EXTREMITIES: 2+ pulses, warm, well-perfused, no edema. NEUROLOGICAL: cranial nerves II through XII grossly intact. Normal speech, gait not observed.no focal neuro deficits PSYCH: normal mood, normal affect. SKIN: warm, dry, normal turgor, no rashes or lesions noted. 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 Postprocedure she recovered nicely with no complications of fever or infection. She was monitored in the ICU setting. Neurological status was monitored closely and had no acute findings. She was treated with IV antibiotics for prophylaxsis. She had SCD's for DVT prophylaxsis. She did well postoperatively. 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 She was medicated for back pain with dilaudid and tylenol as needed. NSAID's were contraindicated. Pain was well controlled. She was hemodynamically stable and afebrile. On 07/03 she was noted to have a pulse rate in the 100's and likely related to pain. She denied shortness of breath or chest pain . She was cleared to be discharged home today with outpatient follow up with Dr. Patino of Orthopedics as scheduled for next as per daughter at bedside. Patient was discharged home in stable condition.Dressing is clean and dry with no evidence of bleeding. Patient was instructed to report any shortness of breath, palpitations, dizziness, fever, drainage, bleeding or increased pain to surgical site. She was instructed to avoid NSAID's and to continue with Tylenol for pain control. She was instructed to continue with lisinopril,atorvastatin and protonix. She was instructed to increase oral intake of fluids and to take Tylenol for pain management as needed. All questions answered and in agreement with discharge plan. Minutes to complete discharge: 30 Discharge Summary Reason For Visit: CERVICALGIA Condition: Stable - Instructions Diet, Activity, Other Instructions: low sodium, heart healthy diet, do not remove dressing and keep clean and dry. MD will remove on follow up office visit as scheduled for next . Referrals: Nick Patino MD [Staff Physician] - Disposition: VNS/HOME HEALTH CARE - Home Medications Comprehensive Discharge Medication List: Ambulatory Orders Lisinopril [Prinivil] 10 mg PO DAILY 12/23/12 Atorvastatin Ca [Lipitor] 40 mg PO DAILY 06/06/18 Ibuprofen 400 mg PO PRN PRN 06/21/18 This patient is new to me today: Yes Date on this admission: 07/03/18 Emergency Visit: No Critical Care patient: No - Discharge Referral Referred to [facility] No
[2018-07-03 17:25] VITALS: BP 138/76; PULSE 104; TEMP 98.4
--- NOTE | 2018-07-03 18:24 | PN ---
Progress Note (short form) - Note Progress Note: Patient kept for pain mx and balance disorder due to cx spondylogenic myelopathy Neuro status at baseline Voice normal Swallowing ok Wound dry D/C home See in office next Leave original dressing Pain meds Tylenol
== END 2018-07-03 20:06 | disposition home health service (06) | DRG 472 ==
LOC: JSAMEDAYSX 05:03 → JICU 20:56 → J8W 06-28 20:10
PROVIDERS: ADMIT Orthopaedic Surgery Orthopaedic Surgery of the Spine; ATTEND Orthopaedic Surgery Orthopaedic Surgery of the Spine
PROC: 0RT30ZZ Resection of Cervical Vertebral Disc, Open Approach (ICD-10-PCS; 2018-06-26)
PROC: 0RG2070 Fusion of 2 or more Cervical Vertebral Joints with Autologous Tissue Substitute, Anterior Approach, Anterior Column, Open Approach (ICD-10-PCS; 2018-06-26)
PROC: 0PB30ZZ Excision of Cervical Vertebra, Open Approach (ICD-10-PCS; 2018-06-26)
PROC: 0RG20A0 Fusion of 2 or more Cervical Vertebral Joints with Interbody Fusion Device, Anterior Approach, Anterior Column, Open Approach (ICD-10-PCS; principal; 2018-06-26 13:00)
DX: M40.202 Unspecified kyphosis, cervical region (principal); M47.12 Other spondylosis with myelopathy, cervical region; M48.02 Spinal stenosis, cervical region; I10 Essential (primary) hypertension; E78.5 Hyperlipidemia, unspecified
CPT/HCPCS: 36415; 76000-TC-FY; 80048; 83735; 84100; 85025; 85027; 86850; 86900; 86901; 88304-TC; 94010; 94760; 97116-GP; 97162-GP; J0131

== ENCOUNTER 2019-06-15 11:48 | Emergency (ER) | payer OTHER, MEDICARE ==
[2019-06-15 11:55] VITALS: TEMP 98.2; BMI 23.3
--- NOTE | 2019-06-15 12:49 | PDOC ---
Attending Attestation - Resident Resident Name: JuanJaywalter - ED Attending Attestation I have performed the following: I have examined & evaluated the patient, The case was reviewed & discussed with the resident, I agree w/resident's findings & plan, Exceptions are as noted - HPI HPI: 06/15/19 12:50 ms. Bowman is an This is a 79 year old female with HTN, HLD, and chronic neck and back pain s/p multiple surgeries who presented to the ED today complaining of two weeks of constant right sided chest pain. Symptoms began while doing nothing in particular Pain is hard to describe but is perhaps "pressure" Pain is constant, no radiation, exacerbated by palpation of the chest wall, not worse with deep breath Patient has been taking Tylenol for pain, and has attempted to make some lifestyle changes like changing her bra but this has not helped No nausea or vomiting No cough No chest wall trauma No diaphoresis 06/15/19 13:35 06/15/19 13:39 - Physicial Exam PE: 06/15/19 12:48 GENERAL: The patient is in no acute distress. ENT: Ears normal, nares patent, oropharynx clear without exudates. Moist mucous membranes. NECK: Normal range of motion, supple LUNGS: Breath sounds equal, clear to auscultation bilaterally. No wheezes, and no crackles. HEART:Regular rate and rhythm, normal S1 and S2 without murmur, rub or gallop. Chest wall is tender to palpation ABDOMEN: Soft, nontender, normoactive bowel sounds. EXTREMITIES: Normal range of motion, no edema. NEUROLOGICAL: Cranial nerves II through XII grossly intact. Normal speech. No focal neurological deficits. SKIN: No rash noted - Medical Decision Making 06/15/19 13:38 83-year-old female presenting to the emergency department with a complaint of chest wall pain which is been present for 2-week Differential includes cardiac ischemia, pe, asthma exacerbation, pneumonia, pneumothorax, pleural effusion, costochondritis, pericarditis, GERD. Will do: Labs EKG CT chest Reassess Analgesia 06/15/19 14:33 Laboratory Tests 06/15/19 06/15/19 06/15/19 13:05 13:05 13:05 WBC 4.9 Hgb 12.6 Hct 37.7 Plt Count 240 D BUN 16.2 Creatinine 0.8 Magnesium 2.2 Troponin I 06/15/19 13:05 WBC Hgb Hct Plt Count BUN Creatinine Magnesium Troponin I < 0.02 CTA pending 06/15/19 15:36 EKG: Twelve-lead EKG was performed and reviewed by me. There is normal sinus rhythm with a normal rate. The axis is normal. The intervals are normal. There are no ST or T wave abnormalities. Impression: Normal twelve-lead EKG CT reveals no lung findings, no fractures, no effusion Will discharge to home Pain likely musculoskeletal Will need to follow up with PMD
--- NOTE | 2019-06-15 12:57 | PDOC ---
History of Present Illness - General Chief Complaint: Chest Pain Stated Complaint: RT SIDE CHEST/BREAST PAIN Time Seen by Provider: 06/15/19 12:17 - History of Present Illness Initial Comments: 06/15/19 12:57 HPI: 83 y/o F with hx of HTN, HLD, multiple cervical spinal surgeries presenting with 5 days of right chest wall pain. She stated the symptoms were noticed randomly after waking up. Pain is described as pain with pressing and burning. She has never has this pain before. Pain is not radiating. There are no exacerbating factors. She tried tylenol last night which seemed to improved pain but she woke up this morning with the pain again. She denies fever, chills , vision change, palpitations, SOB, HUERTAS, LH, abd pain, v/v, diaphoresis, sensation change, dysuria. PMHx: as noted above ROS: as noted SHx: Denies tobacco use; no alcohol use; no rec drugs Allergies: NKDA ROS: GENERAL/CONSTITUTIONAL: No fever or chills. No weakness. HEAD, EYES, EARS, NOSE AND THROAT: No change in vision. No ear pain or discharge. No sore throat. CARDIOVASCULAR: +chest pain; no shortness of breath RESPIRATORY: No cough, wheezing, or hemoptysis. GASTROINTESTINAL: No nausea, vomiting, diarrhea or constipation. GENITOURINARY: No dysuria, frequency, or change in urination. MUSCULOSKELETAL: No joint or muscle swelling or pain. +chronic back pain. SKIN: No rash NEUROLOGIC: No headache, vertigo, loss of consciousness, or change in strength/ sensation. ENDOCRINE: No increased thirst. No abnormal weight change HEMATOLOGIC/LYMPHATIC: No anemia, easy bleeding, or history of blood clots. ALLERGIC/IMMUNOLOGIC: No hives or skin allergy. PE: GENERAL: Awake, alert, and fully oriented, no acute distress HEAD: No signs of trauma, normocephalic, atraumatic EYES: EOMI, sclera anicteric, conjunctiva clear ENT: Auricles normal inspection, hearing grossly normal, nares patent, oropharynx clear without exudates. Moist mucosa NECK: Normal ROM, no lymphadenopathy LUNGS: No increased work of breathing, symmetrical chest rise, clear to auscultation bilaterally, no wheezes, crackles or rhonchi HEART: Regular rate and rhythm, normal S1 and S2, no murmurs, peripheral pulses 2+ and equal bilaterally. Right chest wall tenderness at 3rd/4th rib and intercostal space from sternum to lateral border of clavicular line ABDOMEN: Soft, nondistended, nontender, normoactive bowel sounds. No guarding, no rebound. No masses. No CVAT EXTREMITIES: Normal inspection, Normal range of motion, no edema. No clubbing or cyanosis. NEUROLOGICAL: Cranial nerves II through XII grossly intact. Normal speech, normal gait, no focal sensorimotor deficits SKIN: Warm, Dry, normal turgor, no rashes or lesions noted Past History - Past Medical History Allergies/Adverse Reactions: Allergies Allergy/AdvReac Type Severity Reaction Status Date / Time morphine Allergy hallucinati Verified 06/15/19 11:56 ons oxycodone Allergy Difficulty Verified 06/15/19 11:56 Breathing Home Medications: Ambulatory Orders Lisinopril [Prinivil] 10 mg PO DAILY 12/23/12 Atorvastatin Ca [Lipitor] 40 mg PO DAILY 06/06/18 Acetaminophen [Tylenol .Regular Strength -] 650 mg PO Q4HPO tablet 07/03/18 Pantoprazole Sodium [Protonix -] 40 mg PO DAILY tablet.ec 07/03/18 Anemia: Yes Asthma: No Cardiac Disorders: No CVA: No COPD: No CHF: No Dementia: No Diabetes: No GI Disorders: No Disorders: No HTN: Yes Hypercholesterolemia: Yes Liver Disease: No Seizures: No Thyroid Disease: No - Surgical History Abdominal Surgery: No Appendectomy: Yes Cardiac Surgery: No Cholecystectomy: No Lung Surgery: No Neurologic Surgery: No Orthopedic Surgery: Yes (back surgery x3) - Immunization History Immunization Up to Date: No - Psycho Social/Smoking Cessation Hx Smoking Status: No Smoking History: Never smoked Have you smoked in the past 12 months: No Number of Cigarettes Smoked Daily: 0 Hx Alcohol Use: No Drug/Substance Use Hx: No Substance Use Type: None Hx Substance Use Treatment: No *Physical Exam - Vital Signs Last Vital Signs Temp Pulse Resp BP Pulse Ox 98.2 F 86 18 141/62 98 06/15/19 11:52 06/15/19 11:52 06/15/19 11:52 06/15/19 11:52 06/15/19 11:52 ED Treatment Course - LABORATORY CBC & Chemistry Diagram: 06/15/19 13:05 06/15/19 13:05 - RADIOLOGY Radiology Studies Ordered: Category Date Time Status CHEST PA & LAT [RAD] Stat Radiology 06/15/19 12:50 Ordered Medical Decision Making - Medical Decision Making 06/15/19 13:14 83 y/o F with hx of HTN, HLD, multiple cervical spinal surgeries presenting with 5 days of right chest wall pain. VSS, AF. PE notable for right chest wall ttp at 3rd/4th rib. Although cardiac etiology unlikely, will perform cardiac profile to ruleout atypical chest pain presentation. DDx also includes MSK strain, occult fx, malignancy, early zoster without lesions -ekg, cxr, cbc, cmp, trop -pain control 06/15/19 14:38 labs unremarkable cxr without acute pathology will proceed with CTA to ruleout PE and other occult path 06/15/19 16:39 CTA negative with no acute pathology or PE will DC home with conservative management discussed with patient resulted; she understands return pcxns; no other questions at this time Discharge - Discharge Information Problems reviewed: Yes Clinical Impression/Diagnosis: Chest pain Qualifiers: Chest pain type: unspecified Qualified Code(s): R07.9 - Chest pain, unspecified - Follow up/Referral - Patient Discharge Instructions Patient Printed Discharge Instructions: DI for Atypical Chest Pain Additional Instructions: Return to the ED if there are concerns for new or worsening symptoms Followup with your PCP within 72 hours for re-evaluation Recommending conservative management with rest, ice/heat if needed, and tylenol 650mg every 6 hours or motrin 600mg every 6 hours. - Post Discharge Activity
[2019-06-15] MEDS ORDERED: ACETAMINOPHEN 325 MG TABLET (FP) PO ONE (13:17)
[2019-06-15 13:25] LABS: BASO % 0.5 % (0-2.0); EOS % 0.7 % (0-4.5); HEMATOCRIT 37.7 % (32.4-45.2); HEMOGLOBIN 12.6 GM/dL (10.7-15.3); LYMPH % 18.5 % (8-40); MCHC 33.3 g/dl (32.0-36.0); MEAN PLT VOLUME 8.6 fl (7.5-11.1); MONO % 8.7 % (3.8-10.2); NEUT % 71.6 % (42.8-82.8); PLATELET COUNT 240 K/MM3 (134-434); RBC 3.93 M/mm3 (3.60-5.2); RDW 13.4 % (11.6-15.6); WHITE BLOOD COUNT 4.9 K/mm3 (4.0-10.0)
[2019-06-15] MEDS ORDERED: ACETAMINOPHEN 325 MG TABLET (FP) ONE (13:42)
[2019-06-15 13:49] LABS: ALBUMIN 3.7 g/dl (3.4-5.0); BILIRUBIN,TOTAL 0.4 mg/dL (0.2-1); BLOOD UREA NITROGEN 16.2 mg/dL (7-18); CALCIUM 9.5 mg/dL (8.5-10.1); CREATININE 0.8 mg/dL (0.55-1.3); POTASSIUM 4.2 mmol/L (3.5-5.1); TOT PROT 6.9 g/dl (6.4-8.2)
[2019-06-15 17:33] VITALS: BP 134/79; PULSE 107
--- NOTE | 2019-06-16 23:22 | EKG ---
Test Reason : Blood Pressure : / mmHG Vent. Rate : 085 BPM Atrial Rate : 085 BPM P-R Int : 148 ms QRS Dur : 084 ms QT Int : 386 ms P-R-T Axes : 067 -40 065 degrees QTc Int : 459 ms NORMAL SINUS RHYTHM LEFT AXIS DEVIATION ABNORMAL ECG WHEN COMPARED WITH ECG OF 07-JUN-2018 10:46, NO SIGNIFICANT CHANGE WAS FOUND Confirmed by LISA TAYLOR MD ([id number]) on 06/16/2019 11:22:28 PM Referred By: Confirmed By:LISA TAYLOR MD
--- NOTE | 2019-06-18 13:42 | EKG ---
Test Reason : Blood Pressure : / mmHG Vent. Rate : 074 BPM Atrial Rate : 074 BPM P-R Int : 166 ms QRS Dur : 086 ms QT Int : 408 ms P-R-T Axes : 051 -16 041 degrees QTc Int : 452 ms NORMAL SINUS RHYTHM NORMAL ECG WHEN COMPARED WITH ECG OF 15-JUN-2019 12:01, NO SIGNIFICANT CHANGE WAS FOUND Confirmed by ADEN CHAWLA MD ([id number]) on 06/18/2019 1:42:11 PM Referred By: Confirmed By:ADEN CHAWLA MD
== END 2019-06-15 17:31 | disposition home or self-care (01) ==
LOC: JER 11:48
DX: R07.89 Other chest pain (principal); I10 Essential (primary) hypertension; E78.5 Hyperlipidemia, unspecified; E78.00 Pure hypercholesterolemia, unspecified; M54.2 Cervicalgia; M54.89 Other dorsalgia; G89.29 Other chronic pain; Z88.5 Allergy status to narcotic agent
CPT/HCPCS: 36415; 71046-TC-FY; 71275-TC; 80053; 83735; 84484; 85025; 93005; 93010; 99283-25

== ENCOUNTER 2020-01-25 06:40 | Day surgery (SDC) | payer OTHER, MEDICARE ==
[2020-01-24 09:24] VITALS: BMI 24.0
[2020-01-25] MEDS ORDERED: DEXAMETHASONE SOD PHOSPHATE/PF 10 MG/ML SDV ONE (07:20)
--- NOTE | 2020-01-25 08:58 | HP ---
Admitting History and Physical - Admission Chief Complaint: Axial low back pain History of Present Illness: The patient complains of axial low back pain. History Source: Patient - Past Medical History Cardiovascular: Yes: HTN, Hyperlipdemia - Smoking History Smoking history: Never smoked Have you smoked in the past 12 months: No Aproximately how many cigarettes per day: 0 - Alcohol/Substance Use Hx Alcohol Use: No Home Medications - Allergies Allergies/Adverse Reactions: Allergies Allergy/AdvReac Type Severity Reaction Status Date / Time morphine Allergy hallucinati Verified 01/25/20 07:28 ons oxycodone Allergy Difficulty Verified 01/25/20 07:28 Breathing - Home Medications Home Medications: Ambulatory Orders Lisinopril [Prinivil] 10 mg PO DAILY 12/23/12 Atorvastatin Ca [Lipitor] 40 mg PO DAILY 06/06/18 Acetaminophen [Tylenol .Regular Strength -] 650 mg PO Q4HPO tablet 07/03/18 Pantoprazole Sodium [Protonix -] 40 mg PO DAILY tablet.ec 07/03/18 Dementia Medication 1 tab PO DAILY 01/25/20 Physical Examination Vital Signs: Vital Signs Temperature 97.3 F L 01/25/20 07:13 Pulse Rate 73 01/25/20 07:13 Respiratory Rate 18 01/25/20 07:13 Blood Pressure 124/68 01/25/20 07:13 O2 Sat by Pulse Oximetry (%) 99 01/25/20 07:13 Constitutional: Yes: Well Nourished, No Distress, Calm Eyes: Yes: Conjunctiva Clear, EOM Intact HENT: Yes: Atraumatic, Normocephalic Neck: Yes: Trachea Midline Cardiovascular: Yes: Regular Rate and Rhythm Respiratory: Yes: Regular Musculoskeletal: Yes: Back Pain Imaging - Results MRI: Report Reviewed, Image Reviewed Assessment/Plan The patients pain is secondary to lumbar spondylosis. I will perform right and Left L3 L4 L5 medical branch block.
[2020-01-25] MEDS ORDERED: BUPIVACAINE HCL/PF 0.75% 10 ML VIAL NR ONE (09:17)
[2020-01-25] MEDS ORDERED: IOHEXOL 180 MG/1 ML ML IJ ONE (09:17)
[2020-01-25] MEDS ORDERED: LIDOCAINE HCL 1%, 10 MG/ML (20ML VIAL) NR ONE ×2 (09:17)
[2020-01-25 10:07] VITALS: BP 154/71; PULSE 62; TEMP 95.5
--- NOTE | 2020-02-04 08:55 | PROC ---
Procedure Note Procedure: Preprocedure Diagnosis: Lumbar spondylosis Post Procedure Diagnosis:same Anasthesia: local Procedure Performed: bilateral L3-L4-L5 medial branch blocks Under fluoroscopic guidance Procedure: After the risks and benefits were explained, informed consent was obtained. The patient was then taken to the procedure room and positioned prone on the procedure table. Time out was performed. The region overlying the appropriate vertebral bodies was identified using fluoroscopy. The skin was prepped and draped in the usual sterile fashion. The skin and soft tissues were anesthetized using 1% lidocaine. Using fluoroscopic guidance, 22 gauge 3.5 inch spinal needles were then introduced to the juncture of the superior articular processes and the transverse processes of the RIGHT L3, L4, and L5 medial branches are located. Omnipaque 180 confirmed appropriate needle placement. There was no epidural or vascular flow observed. .75% bupivacaine was drawn into a syringe. 0.5cc of this solution was then injected at each level. The same procedure was repeated on the LEFT side at the same levels. The patient tolerated the procedure well and there were no complications. The patient was taken to the post procedure recovery area in good condition. Vital signs remained stable before, and after the procedure. The patient was given oral follow-up instructions.The patient was given a follow up appointment with me in the near future. Kyree Galindo D.O.
== END 2020-01-25 09:55 | disposition home or self-care (01) ==
LOC: JASU-SURG 06:40
PROVIDERS: ATTEND Pain Medicine Pain Medicine
PROC: 3E0T33Z Introduction of Anti-inflammatory into Peripheral Nerves and Plexi, Percutaneous Approach (ICD-10-PCS; 2020-01-25)
PROC: 3E0T3BZ Introduction of Anesthetic Agent into Peripheral Nerves and Plexi, Percutaneous Approach (ICD-10-PCS; principal; 2020-01-25 08:30)
DX: M47.816 Spondylosis without myelopathy or radiculopathy, lumbar region (principal); M54.5 Low back pain
CPT/HCPCS: 76000-TC-FY

== ENCOUNTER 2020-02-24 12:40 | Emergency (ER) | payer OTHER, MEDICARE ==
--- NOTE | 2020-02-24 12:45 | PDOC ---
History of Present Illness - General Chief Complaint: Pain Stated Complaint: ADBOMINAL PAIN Time Seen by Provider: 02/24/20 12:45 History Source: Patient Exam Limitations: No Limitations - History of Present Illness Initial Comments: 02/24/20 12:46 84yF w PMHx HTN, HLD, multiple cervical spinal surgeries, migraines presenting w persistent L sided headache and subsequent nausea, vomiting, mild epigastric pain after waking up at 7am. Tried numerous meds at home but vomited them up. Has hx of severe migraines but never had associated vomiting before. Denies recent trauma, head injury, last back surgery in 2019. Denies fever, cough, chest pain, SOB, urinary/bowel mvmt changes. Past History - Medical History Allergies/Adverse Reactions: Allergies Allergy/AdvReac Type Severity Reaction Status Date / Time morphine Allergy hallucinati Verified 02/24/20 12:59 ons oxycodone Allergy Difficulty Verified 02/24/20 12:59 Breathing Home Medications: Ambulatory Orders Lisinopril [Prinivil] 10 mg PO DAILY 12/23/12 Atorvastatin Ca [Lipitor] 40 mg PO DAILY 06/06/18 Acetaminophen [Tylenol .Regular Strength -] 650 mg PO Q4HPO tablet 07/03/18 Pantoprazole Sodium [Protonix -] 40 mg PO DAILY tablet.ec 07/03/18 Dementia Medication 1 tab PO DAILY 01/25/20 Ondansetron [Zofran *Odt*] 4 mg SL TID #8 od.tablet 02/24/20 Anemia: No Asthma: No Cancer: No Cardiac Disorders: No CVA: No COPD: No CHF: No Dementia: No Diabetes: No GI Disorders: No Disorders: No HTN: Yes Hypercholesterolemia: Yes Liver Disease: No Seizures: No Thyroid Disease: No - Surgical History Abdominal Surgery: No Appendectomy: Yes Cardiac Surgery: No Cholecystectomy: No Lung Surgery: No Neurologic Surgery: Yes (CERVICAL) Orthopedic Surgery: Yes (back surgery x3) - Immunization History Immunization Up to Date: No - Psycho-Social/Smoking History Smoking Status: No Smoking History: Never smoked Have you smoked in the past 12 months: No Number of Cigarettes Smoked Daily: 0 Review of Systems - Review of Systems Constitutional: No: Chills, Fever HEENTM: No: Eye Pain, Nose Pain Respiratory: No: Cough, Shortness of Breath Cardiac (ROS): No: Chest Pain, Palpitations ABD/GI: Yes: Nausea, Vomiting. No: Abdominal Distended, Constipated, Diarrhea : No: Burning, Discharge Musculoskeletal: No: Back Pain, Muscle Weakness Integumentary: No: Bruising, Flushing Neurological: Yes: Headache. No: Seizure Psychiatric: No: Anxiety, Depression Endocrine: No: Intolerance to Cold, Intolerance to Heat Hematologic/Lymphatic: No: Anemia, Blood Clots *Physical Exam - Physical Exam General Appearance: Yes: Nourished, Appropriately Dressed, Moderate Distress HEENT: positive: EOMI, BRUCE, Normal Voice, Hearing Grossly Normal. negative: Scleral Icterus (R), Scleral Icterus (L) Respiratory/Chest: positive: Lungs Clear, Normal Breath Sounds. negative: Chest Tender, Respiratory Distress Cardiovascular: positive: Regular Rhythm, Regular Rate, S1, S2. negative: Edema, Murmur Gastrointestinal/Abdominal: positive: Normal Bowel Sounds, Tender (minimal epigastric), Flat, Soft. 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 negative: Numbness, Sensory Deficit, Confused, Disoriented ED Treatment Course - LABORATORY CBC & Chemistry Diagram: 02/24/20 13:15 02/24/20 13:17 Medical Decision Making - Medical Decision Making 02/24/20 13:36 EKG - NSR, HR 60, QTc 464, no ST changes Head CT - no acute bleed/infarct, mild chronic ischemic changes, R maxillary sinus thickening sinusitis? --- 84yF w PMHx HTN, HLD, multiple cervical spinal surgeries, migraines presenting w persistent L sided headache and subsequent nausea, vomiting, mild epigastric pain after waking up at 7am. No focal neuro deficits. Likely migraine. No sign of bleed/infarct on CT vs ACS (neg trop, NSR) Given tylenol, reglan, pepcid, maalox, 1L NS w pain relief. Tolerated PO fluids DC w neuro f/u, zofran, supportive care Discharge - Discharge Information Problems reviewed: Yes Clinical Impression/Diagnosis: Migraine Qualifiers: Migraine type: without aura Status migrainosus presence: without status migrainosus Intractability: not intractable Qualified Code(s): G43.009 - Migraine without aura, not intractable, without status migrainosus Condition: Improved Disposition: HOME - Follow up/Referral Referrals: Anne Desai [Primary Care Provider] - - Patient Discharge Instructions Patient Printed Discharge Instructions: DI for Migraine Additional Instructions: You had a migraine. Your workup did not show anything concerning Alternate between 1000mg tylenol and 600mg ibuprofen every 3 hours if you have pain Take the prescribed zofran if you are vomiting Drink lots of water Please follow up with your neurologist to better control your headaches - Post Discharge Activity
[2020-02-24 12:59] VITALS: BMI 25.2
[2020-02-24] MEDS ORDERED: METOCLOPRAMIDE HCL INJECTION 10 MG/2 ML VIAL IVPB ONE (13:04)
[2020-02-24] MEDS ORDERED: SODIUM CHLORIDE 0.9% 500 ML INFUS.BAG IV ONE (13:04)
[2020-02-24] MEDS ORDERED: ACETAMINOPHEN 1000 MG/100 ML VIAL (NON FORMULARY) IVPB ONE (13:04)
[2020-02-24] MEDS ORDERED: FAMOTIDINE 20 MG/50 ML IVPB 20 MG/50 ML MG IVPB ONE ×2 (13:05→13:26)
[2020-02-24] MEDS ORDERED: METOCLOPRAMIDE HCL INJECTION 10 MG/2 ML VIAL ONE (13:25)
[2020-02-24] MEDS ORDERED: ACETAMINOPHEN INJECTION 100 ML IVPB ONE (13:25)
[2020-02-24 14:10] LABS: BASO % 0.2 % (0-2.0); EOS % 0.2 % (0-4.5); HEMOGLOBIN 12.6 GM/dL (10.7-15.3); LYMPH % 8.1 % (8-40); MCH 31.9 pg (25.7-33.7); MCHC 33.3 g/dl (32.0-36.0); MEAN CELL VOLUME 95.9 fl (80-96); MEAN PLT VOLUME 8.9 fl (7.5-11.1); MONO % 4.4 % (3.8-10.2); NEUT % 87.1 % (42.8-82.8); PLATELET COUNT 215 K/MM3 (134-434); RBC 3.96 M/mm3 (3.60-5.2); RDW 12.8 % (11.6-15.6); WHITE BLOOD COUNT 8.6 K/mm3 (4.0-10.0)
[2020-02-24 14:38] LABS: ALBUMIN 3.8 g/dl (3.4-5.0); ALK PHOS 105 U/L (45-117); ANION GAP 8 MMOL/L (8-16); BILIRUBIN,TOTAL 0.6 mg/dL (0.2-1); BLOOD UREA NITROGEN 16.7 mg/dL (7-18); CALCIUM 9.1 mg/dL (8.5-10.1); CHLORIDE 106 mmol/L (98-107); CO2 27 mmol/L (21-32); CREATININE 0.8 mg/dL (0.55-1.3); GLUCOSE,RANDOM 124 mg/dL (74-106); LIPASE 239 U/L (73-393); SGOT/AST 23 U/L (15-37); SGPT/ALT 24 U/L (13-61); SODIUM 141 mmol/L (136-145); TOT PROT 6.9 g/dl (6.4-8.2)
[2020-02-24 15:08] VITALS: BP 140/63; PULSE 74
--- NOTE | 2020-02-24 15:13 | PDOC ---
Documentation entered by Carol Jacobo SCRIBE, acting as scribe for Tito Beyer MD. Tito Beyer MD: This documentation has been prepared by the scribe, Carol Jacobo SCRIBE, under my direction and personally reviewed by me in its entirety. I confirm that the documentation accurately reflects all work, treatment, procedures, and medical decision making performed by me. Attending Attestation - Resident Resident Name: AndreaLucas - ED Attending Attestation I have performed the following: I have examined & evaluated the patient, The case was reviewed & discussed with the resident, I agree w/resident's findings & plan, Exceptions are as noted - HPI HPI: 02/24/20 12:47 Patient is an year old female with a significant past medical history of migraines, hypertension, HLD, and multiple cervical spinal surgeries who presents to the ED with a headache, nausea, vomiting, and mild epigastric pain since 7am this morning. Pt reports headache began gradually and has become worse and worse, feels like her typical migraines but what concerned her was 1 episode of NBNB emesis. States in the past, she has had nausea with her cruz but never vomited before which was what prompted her to come to the ED. Pt reports vomiti ng her home migraine medications. Denies focal weakness/numbness. Denies dizziness. Patient denies: any recent trauma, head injury, fever, SOB, cough, chest pain, any urinary issues, any changes in bowel movements, or any other related symptoms. Allergies: morphine and oxycodone. - Physicial Exam PE: 02/24/20 15:02 GENERAL: Awake, alert, and fully oriented, in no acute distress EYES: PERRLA, EOMI, sclera anicteric, conjunctiva clear ENT: Oropharynx clear without exudates. Moist mucosa NECK: Normal ROM, supple, no lymphadenopathy, JVD, or masses LUNGS: Breath sounds equal, clear to auscultation bilaterally. No wheezes, and no crackles HEART: Regular rate and rhythm, normal S1 and S2, no murmurs, rubs or gallops ABDOMEN: Soft, nontender, normoactive bowel sounds. No guarding, no rebound. No masses EXTREMITIES: Normal range of motion, no edema. No clubbing or cyanosis. No cords, erythema, or tenderness NEUROLOGICAL: Normal speech, cranial nerves intact, negative pronator drift, 5/5 strength in all 4 extremities, normal sensation to light touch in all 4 extremities, normal cerebellar exam, normal gait, normal tone SKIN: Warm, Dry, normal turgor, no rashes or lesions noted. - Medical Decision Making 02/24/20 15:03 84yo F hx migraines presents to the ED with migraine cruz a/w 1 episode vomiting as well as epigastric pain after vomiting. Vitals and exam unremarkable with intact neuro exam Given new associated emesis, CTH obtained which was negative for acute path Headache has completely resolved with IVF, IV tylenol, IVPB reglan Episgastric pain likely gastritis 2/2 vomiting. No epigastric pain in ED with benign abd exam. Lipase and trop wnl. EKG non ischemic Pt feels very well, requests DC home She is clinically well appearing Return precautions discussed I discussed the physical exam findings, ancillary test results and final diagnoses with the patient. I answered all of the patient's questions. The patient was satisfied with the care received and felt comfortable with the discharge plan and treatment plan. The patient will call their primary care physician within 24 hours to arrange follow-up and will return to the Emergency Department with any new, persistent or worsening symptoms. Heart Score/ECG Review #1 02/24/20 15:12 Twelve-lead EKG was performed and reviewed by me. Normal sinus rhythm, rate 60. Normal axis and intervals. No ST elevations or T wave inversions. Discharge - Discharge Information Problems reviewed: Yes Clinical Impression/Diagnosis: Headache, Nausea, Vomiting Migraine Qualifiers: Migraine type: without aura Status migrainosus presence: without status migrainosus Intractability: not intractable Qualified Code(s): G43.009 - Migraine without aura, not intractable, without status migrainosus Condition: Improved Disposition: HOME - Additional Discharge Information Prescriptions: Ondansetron [Zofran *Odt*] 4 mg SL TID #8 od.tablet - Follow up/Referral Referrals: Anne Desai [Primary Care Provider] - - Patient Discharge Instructions Patient Printed Discharge Instructions: DI for Migraine Additional Instructions: You had a migraine. Your workup did not show anything concerning Alternate between 1000mg tylenol and 600mg ibuprofen every 3 hours if you have pain Take the prescribed zofran if you are vomiting Drink lots of water Please follow up with your neurologist to better control your headaches - Post Discharge Activity
--- NOTE | 2020-02-24 17:47 | EKG ---
Test Reason : Blood Pressure : / mmHG Vent. Rate : 060 BPM Atrial Rate : 060 BPM P-R Int : 164 ms QRS Dur : 092 ms QT Int : 464 ms P-R-T Axes : 054 -26 029 degrees QTc Int : 464 ms NORMAL SINUS RHYTHM NONSPECIFIC ST ABNORMALITY BORDERLINE CRITERIA FOR Confirmed by MD TRACY, YONAS ([id number]) on 02/24/2020 5:46:54 PM Referred By: Confirmed By:YONAS MOLINA MD
[2020-02-24] MEDS ORDERED: MAG HYDROX/AL HYDROX/SIMETH -MYLANTA- ORAL SUSPENSION PO SCH (18:00)
== END 2020-02-24 15:25 | disposition home or self-care (01) ==
LOC: JER 12:40
PROC: 3E0333Z Introduction of Anti-inflammatory into Peripheral Vein, Percutaneous Approach (ICD-10-PCS; principal; 2020-02-24)
PROC: 3E033GC Introduction of Other Therapeutic Substance into Peripheral Vein, Percutaneous Approach (ICD-10-PCS; 2020-02-24)
DX: G43.009 Migraine without aura, not intractable, without status migrainosus (principal); R11.2 Nausea with vomiting, unspecified
CPT/HCPCS: 36415; 70450-TC; 80053; 82550; 82962; 83690; 84484; 85025; 93005; 93010; 99284-25; J0131

== ENCOUNTER 2020-11-29 14:03 | Emergency (ER) | payer OTHER, MEDICARE ==
[2020-11-29 14:19] VITALS: TEMP 98.8; BMI 26.6
[2020-11-29] MEDS ORDERED: ACETAMINOPHEN 325 MG TABLET (FP) PO ONE (15:15)
[2020-11-29] MEDS ORDERED: ACETAMINOPHEN 325 MG TABLET (FP) ONE (15:54)
[2020-11-29 16:20] LABS: BASO % 0.6 % (0-2.0); EOS % 2.1 % (0-4.5); HEMATOCRIT 40.5 % (32.4-45.2); HEMOGLOBIN 13.7 GM/dL (10.7-15.3); LYMPH % 16.7 % (8-40); MCH 32.6 pg (25.7-33.7); MCHC 33.9 g/dl (32.0-36.0); MEAN PLT VOLUME 8.4 fl (7.5-11.1); MONO % 11.4 % (3.8-10.2); NEUT % 69.2 % (42.8-82.8); PLATELET COUNT 263 K/MM3 (134-434); RBC 4.22 M/mm3 (3.60-5.2); RDW 13.8 % (11.6-15.6); WHITE BLOOD COUNT 5.5 K/mm3 (4.0-10.0)
[2020-11-29 16:37] LABS: BLOOD UREA NITROGEN 23.5 mg/dL (7-18); CALCIUM 9.3 mg/dL (8.5-10.1)
[2020-11-29 16:38] LABS: ALBUMIN 3.8 g/dl (3.4-5.0); MAGNESIUM 2.3 mg/dL (1.8-2.4)
[2020-11-29 16:40] LABS: CREATININE 0.9 mg/dL (0.55-1.3)
[2020-11-29 16:42] LABS: BILIRUBIN,TOTAL 0.4 mg/dL (0.2-1); TOT PROT 7.2 g/dl (6.4-8.2)
[2020-11-29 20:15] LABS: URINE APPEARANCE CLEAR; URINE BILIRUBIN NEGATIVE (NEGATIVE); URINE COLOR YELLOW; URINE GLUCOSE (UA) NEGATIVE (NEGATIVE); URINE KETONE NEGATIVE (NEGATIVE); URINE LEUK ESTERASE NEGATIVE (NEGATIVE); URINE NITRITE NEGATIVE (NEGATIVE); URINE PROTEIN NEGATIVE (NEGATIVE)
[2020-11-29 21:40] VITALS: BP 136/72; PULSE 88
== END 2020-11-29 21:40 | disposition home or self-care (01) ==
LOC: JER 14:03
DX: N83.202 Unspecified ovarian cyst, left side (principal); R10.32 Left lower quadrant pain
CPT/HCPCS: 36415; 71045-TC-FY; 74177-TC; 80053; 81003; 83690; 83735; 85025; 87086; 93005; 93010; 93971-TC; 99285-25; C9803; U0003; U0005

== ENCOUNTER 2022-03-24 17:56 | Observation (INO) | payer OTHER, MEDICARE ==
[2022-03-24 18:31] VITALS: BMI 25.8
[2022-03-24] MEDS ORDERED: ACETAMINOPHEN 1000 MG/100 ML BAG IVPB ONE (18:44)
[2022-03-24] MEDS ORDERED: ACETAMINOPHEN INJECTION 100 ML IVPB ONE (19:15)
[2022-03-24 19:41] LABS: BASO % 0.4 % (0-2.0); HEMATOCRIT 39.1 % (32.4-45.2); HEMOGLOBIN 13.5 GM/dL (10.7-15.3); LYMPH % 5.6 % (8-40); MCH 32.8 pg (25.7-33.7); MCHC 34.4 g/dl (32.0-36.0); MEAN CELL VOLUME 95.3 fl (80-96); MEAN PLT VOLUME 8.4 fl (7.5-11.1); MONO % 2.4 % (3.8-10.2); NEUT % 91.6 % (42.8-82.8); PLATELET COUNT 252 10^3/uL (134-434); RDW 13.4 % (11.6-15.6); WHITE BLOOD COUNT 8.1 K/mm3 (4.0-10.0)
[2022-03-24 19:58] LABS: INR 0.99 (0.83-1.09); PROTHROMBIN TIME (PATIENT) 11.4 SEC (9.7-13.0)
[2022-03-24 20:01] LABS: ACTIVATED PTT 27.2 SECONDS (25.2-36.5)
[2022-03-24 20:09] LABS: CALCIUM 9.1 mg/dL (8.5-10.1)
[2022-03-24 20:10] LABS: ALBUMIN 3.8 g/dl (3.4-5.0); BLOOD UREA NITROGEN 14.7 mg/dL (7-18)
[2022-03-24 20:13] LABS: CREATININE 0.8 mg/dL (0.55-1.3)
[2022-03-24 20:15] LABS: BILIRUBIN,TOTAL 0.5 mg/dL (0.2-1)
[2022-03-24 20:18] LABS: N-TERMINAL BNP 191.2 pg/ml (5-450)
[2022-03-24 20:50] LABS: ANISOCYTOSIS 1+; MACROCYTOSIS 0
[2022-03-24] MEDS ORDERED: ONDANSETRON 4 MG/2 ML VIAL IVPUSH ONE (21:05)
[2022-03-24] MEDS ORDERED: ONDANSETRON 4 MG/2 ML VIAL ONE (21:06)
[2022-03-24 23:41] LABS: URINE APPEARANCE CLOUDY; URINE BILIRUBIN NEGATIVE (NEGATIVE); URINE COLOR YELLOW; URINE GLUCOSE (UA) NEGATIVE (NEGATIVE)
[2022-03-24 23:42] LABS: URINE KETONE NEGATIVE (NEGATIVE); URINE NITRITE NEGATIVE (NEGATIVE); URINE PROTEIN TRACE (NEGATIVE); URINE RBC 22 /uL (0-23.9); URINE UROBILINOGEN 0.2 mg/dL (0.2-1.0)
[2022-03-24 23:43] LABS: EPI CELLS 11 /uL (0-25.1); HYALINE CASTS 1 /uL (0-3.1); URINE LEUK ESTERASE NEGATIVE (NEGATIVE); URINE WBC 24 /uL (0-25.8)
[2022-03-24 23:44] LABS: URINE BACTERIA 31 /uL (0-1359)
[2022-03-25] MEDS ORDERED: MAG HYDROX/AL HYDROX/SIMETH -MYLANTA- ORAL SUSPENSION PO ONE (00:52)
[2022-03-25] MEDS ORDERED: MAG HYDROX/AL HYDROX/SIMETH 30 ML UNIT-DOSE CUP ONE (00:55)
[2022-03-25] MEDS ORDERED: LIDOCAINE 5% TOPICAL PATCH TP ONE (01:09)
[2022-03-25 07:29] LABS: BASO % 0.4 % (0-2.0); EOS % 0.5 % (0-4.5); HEMOGLOBIN 13.3 GM/dL (10.7-15.3); MEAN CELL VOLUME 94.3 fl (80-96); MEAN PLT VOLUME 8.4 fl (7.5-11.1); MONO % 10.1 % (3.8-10.2); PLATELET COUNT 270 10^3/uL (134-434); RBC 4.14 M/mm3 (3.60-5.2); RDW 13.7 % (11.6-15.6); WHITE BLOOD COUNT 6.5 K/mm3 (4.0-10.0)
[2022-03-25 07:54] LABS: ALBUMIN 3.8 g/dl (3.4-5.0); BLOOD UREA NITROGEN 14.4 mg/dL (7-18); MAGNESIUM 2.4 mg/dL (1.8-2.4)
[2022-03-25 07:57] LABS: CREATININE 0.9 mg/dL (0.55-1.3)
[2022-03-25 07:58] LABS: BILIRUBIN,TOTAL 0.7 mg/dL (0.2-1); TOT PROT 6.8 g/dl (6.4-8.2)
[2022-03-25 09:57] VITALS: BP 133/74; PULSE 65; RESP 18; TEMP 98
[2022-03-25] MEDS ORDERED: ACETAMINOPHEN 500 MG TABLET (FP) PO PRN (10:50)
[2022-03-25] MEDS ORDERED: LIDOCAINE PATCH REMOVAL MC SCH (13:00)
== END 2022-03-25 16:13 | disposition home or self-care (01) ==
LOC: JER 17:56 → JERBED 22:34
PROVIDERS: ADMIT Internal Medicine; ATTEND Family Medicine
PROC: 3E033NZ Introduction of Analgesics, Hypnotics, Sedatives into Peripheral Vein, Percutaneous Approach (ICD-10-PCS; principal; 2022-03-24)
PROC: 3E033GC Introduction of Other Therapeutic Substance into Peripheral Vein, Percutaneous Approach (ICD-10-PCS; 2022-03-24)
DX: R55 Syncope and collapse (principal); I10 Essential (primary) hypertension; M41.9 Scoliosis, unspecified; E78.5 Hyperlipidemia, unspecified; F03.90 Unspecified dementia, unspecified severity, without behavioral disturbance, psychotic disturbance, mood disturbance, and anxiety; Z88.6 Allergy status to analgesic agent
CPT/HCPCS: 36415; 70450-TC; 71045-TC-FY; 71260-TC; 72125-TC; 72128-TC; 72131-TC; 74177-TC; 80053; 81003; 83605; 83690; 83735; 83880; 84443; 84484; 85025; 85610; 85730; 87086; 93005; 93010; 96374; 96375; 97116-GP; 97161-GP; 99285-25; C9803-CS; G0378; Q9967; U0003; U0005

== ENCOUNTER 2022-03-28 11:33 | Emergency (ER) | payer OTHER, MEDICARE ==
[2022-03-28 11:56] VITALS: PULSE 70; BMI 26.6
[2022-03-28] MEDS ORDERED: ACETAMINOPHEN 1000 MG/100 ML BAG IVPB ONE (12:28)
[2022-03-28] MEDS ORDERED: ONDANSETRON 4 MG/2 ML VIAL IVPUSH ONE (12:29)
[2022-03-28] MEDS ORDERED: FAMOTIDINE 20 MG/50 ML IVPB 20 MG/50 ML MG IVPB ONE ×2 (12:29→12:46)
[2022-03-28] MEDS ORDERED: MAG HYDROX/AL HYDROX/SIMETH -MYLANTA- ORAL SUSPENSION PO ONE (12:29)
[2022-03-28] MEDS ORDERED: SODIUM CHLORIDE 0.9% 500 ML INFUS.BAG IV ONE (12:38)
[2022-03-28] MEDS ORDERED: ACETAMINOPHEN INJECTION 100 ML IVPB ONE (12:46)
[2022-03-28] MEDS ORDERED: MAG HYDROX/AL HYDROX/SIMETH 30 ML UNIT-DOSE CUP ONE (12:46)
[2022-03-28] MEDS ORDERED: ONDANSETRON 4 MG/2 ML VIAL ONE (12:46)
[2022-03-28 12:52] LABS: BASO % 0.5 % (0-2.0); EOS % 0.6 % (0-4.5); HEMATOCRIT 38.9 % (32.4-45.2); HEMOGLOBIN 13.2 GM/dL (10.7-15.3); LYMPH % 16.3 % (8-40); MCHC 33.9 g/dl (32.0-36.0); MEAN CELL VOLUME 94.5 fl (80-96); MEAN PLT VOLUME 8.4 fl (7.5-11.1); MONO % 9.9 % (3.8-10.2); NEUT % 72.7 % (42.8-82.8); PLATELET COUNT 261 10^3/uL (134-434); RBC 4.12 M/mm3 (3.60-5.2); RDW 13.5 % (11.6-15.6); WHITE BLOOD COUNT 5.6 K/mm3 (4.0-10.0)
[2022-03-28 13:01] LABS: EPI CELLS 6 /uL (0-25.1); HYALINE CASTS 0 /uL (0-3.1); PH,URINE 7.5 (5.0-8.0); URINE APPEARANCE CLEAR; URINE BACTERIA 54 /uL (0-1359); URINE BILIRUBIN NEGATIVE (NEGATIVE); URINE COLOR YELLOW; URINE GLUCOSE (UA) NEGATIVE (NEGATIVE); URINE KETONE NEGATIVE (NEGATIVE); URINE LEUK ESTERASE TRACE (NEGATIVE); URINE NITRITE NEGATIVE (NEGATIVE); URINE PROTEIN NEGATIVE (NEGATIVE); URINE RBC 3 /uL (0-23.9); URINE UROBILINOGEN 0.2 mg/dL (0.2-1.0); URINE WBC 8 /uL (0-25.8)
[2022-03-28 13:52] LABS: BLOOD UREA NITROGEN 12.3 mg/dL (7-18); CREATININE 0.7 mg/dL (0.55-1.3)
[2022-03-28 13:53] LABS: CALCIUM 8.9 mg/dL (8.5-10.1)
[2022-03-28 13:54] LABS: ALBUMIN 3.5 g/dl (3.4-5.0); BILIRUBIN,TOTAL 0.4 mg/dL (0.2-1); TOT PROT 6.7 g/dl (6.4-8.2)
[2022-03-28 14:05] LABS: MAGNESIUM 2.2 mg/dL (1.8-2.4)
[2022-03-28 15:09] VITALS: BP 144/76; RESP 65; TEMP 97.8
== END 2022-03-28 15:39 | disposition home or self-care (01) ==
LOC: JER 11:33
PROC: 3E033NZ Introduction of Analgesics, Hypnotics, Sedatives into Peripheral Vein, Percutaneous Approach (ICD-10-PCS; principal; 2022-03-28)
PROC: 3E033GC Introduction of Other Therapeutic Substance into Peripheral Vein, Percutaneous Approach (ICD-10-PCS; 2022-03-28)
PROC: 3E033GC Introduction of Other Therapeutic Substance into Peripheral Vein, Percutaneous Approach (ICD-10-PCS; 2022-03-28)
DX: M54.9 Dorsalgia, unspecified (principal); R14.1 Gas pain
CPT/HCPCS: 0241U-QW; 36415; 71045-TC-FY; 80053; 81003; 83690; 83735; 84484; 85025; 87086; 93005; 93010; 99284-25

== ENCOUNTER 2023-07-06 07:30 | Emergency (ER) | payer OTHER, MEDICARE ==
[2023-07-06 08:04] VITALS: RESP 18; BMI 27.4
[2023-07-06] MEDS ORDERED: LIDOCAINE 5% TOPICAL PATCH TP ONE (08:13)
[2023-07-06] MEDS ORDERED: ACETAMINOPHEN 1000 MG/100 ML BAG IVPB ONE (08:13)
[2023-07-06] MEDS ORDERED: HYDROmorphone HCl 2 MG/ML VIAL IVPUSH ONE (08:41)
[2023-07-06] MEDS ORDERED: ACETAMINOPHEN INJECTION 100 ML IVPB ONE (08:46)
[2023-07-06] MEDS ORDERED: LIDOCAINE 4% PATCH TP ONE (08:46)
[2023-07-06] MEDS ORDERED: HYDROmorphone HCl 2 MG/ML VIAL ONE (09:02)
[2023-07-06 09:41] LABS: BASO % 0.5 % (0-2.0); HEMOGLOBIN 12.5 GM/dL (10.7-15.3); LYMPH % 11.8 % (8-40); MCH 32.3 pg (25.7-33.7); MCHC 33.9 g/dl (32.0-36.0); MEAN CELL VOLUME 95.4 fl (80-96); MEAN PLT VOLUME 8.8 fl (7.5-11.1); MONO % 9.2 % (3.8-10.2); NEUT % 76.5 % (42.8-82.8); PLATELET COUNT 275 10^3/uL (134-434); RBC 3.88 M/mm3 (3.60-5.2); RDW 12.9 % (11.6-15.6); WHITE BLOOD COUNT 7.5 K/mm3 (4.0-10.0)
[2023-07-06 10:24] LABS: CALCIUM 8.6 mg/dL (8.5-10.1)
[2023-07-06 10:25] LABS: ALBUMIN 3.2 g/dl (3.4-5.0)
[2023-07-06 10:27] LABS: CREATININE 0.8 mg/dL (0.55-1.3)
[2023-07-06 10:29] LABS: BILIRUBIN,TOTAL 0.5 mg/dL (0.2-1); TOT PROT 6.8 g/dl (6.4-8.2)
[2023-07-06 10:51] LABS: EPI CELLS 24 /uL (0-25.1); HYALINE CASTS 1 /uL (0-3.1); PH,URINE 6.5 (5.0-8.0); URINE APPEARANCE CLEAR; URINE BACTERIA 31 /uL (0-1359); URINE BILIRUBIN NEGATIVE (NEGATIVE); URINE COLOR YELLOW; URINE GLUCOSE (UA) NEGATIVE (NEGATIVE); URINE KETONE NEGATIVE (NEGATIVE); URINE LEUK ESTERASE 2+ (NEGATIVE); URINE NITRITE NEGATIVE (NEGATIVE); URINE PROTEIN TRACE (NEGATIVE); URINE RBC 28 /uL (0-23.9); URINE UROBILINOGEN 0.2 mg/dL (0.2-1.0); URINE WBC 190 /uL (0-25.8)
[2023-07-06] MEDS ORDERED: KETOROLAC TROMETHAMINE 15 MG/ML VIAL IVPUSH ONE (14:19)
[2023-07-06] MEDS ORDERED: KETOROLAC TROMETHAMINE 15 MG/ML VIAL ONE (14:37)
[2023-07-06] MEDS ORDERED: CEPHALEXIN MONOHYDRATE 500 MG CAPSULE (UD) PO ONE (17:09)
[2023-07-06] MEDS ORDERED: CEPHALEXIN MONOHYDRATE 500 MG CAPSULE (UD) ONE (17:39)
[2023-07-06 17:44] VITALS: BP 145/79; PULSE 80; TEMP 98.1
[2023-07-06] MEDS ORDERED: LIDOCAINE PATCH REMOVAL MC ONE (22:00)
== END 2023-07-06 18:16 | disposition left against medical advice (07) ==
LOC: JER 07:30
PROC: 3E033NZ Introduction of Analgesics, Hypnotics, Sedatives into Peripheral Vein, Percutaneous Approach (ICD-10-PCS; principal; 2023-07-06)
PROC: 3E0333Z Introduction of Anti-inflammatory into Peripheral Vein, Percutaneous Approach (ICD-10-PCS; 2023-07-06)
PROC: 3E033GC Introduction of Other Therapeutic Substance into Peripheral Vein, Percutaneous Approach (ICD-10-PCS; 2023-07-06)
DX: M54.9 Dorsalgia, unspecified (principal); N39.0 Urinary tract infection, site not specified; U07.1 COVID-19
CPT/HCPCS: 0241U-QW; 36415; 71045-TC-FY; 71275-TC; 74174-TC; 80053; 81003; 83605; 83690; 84484; 85025; 87086; 93005; 93010; 99285-25; Q9967

== ENCOUNTER 2024-04-24 14:47 | Inpatient (IN) | payer OTHER, MEDICARE ==
[2024-04-24 16:09] LABS: BASO % 0.4 % (0-2.0); EOS % 1.1 % (0-4.5); HEMATOCRIT 37.1 % (32.4-45.2); HEMOGLOBIN 12.5 GM/dL (10.7-15.3); LYMPH % 11.7 % (8-40); MCH 31.9 pg (25.7-33.7); MCHC 33.8 g/dl (32.0-36.0); MEAN CELL VOLUME 94.6 fl (80-96); MEAN PLT VOLUME 8.3 fl (7.5-11.1); MONO % 7.4 % (3.8-10.2); NEUT % 79.4 % (42.8-82.8); PLATELET COUNT 263 10^3/uL (134-434); RBC 3.92 M/mm3 (3.60-5.2); RDW 13.8 % (11.6-15.6); WHITE BLOOD COUNT 7.3 K/mm3 (4.0-10.0)
[2024-04-24 16:25] LABS: POTASSIUM 4.6 mmol/L (3.5-5.1)
[2024-04-24 16:26] LABS: CALCIUM 9.3 mg/dL (8.5-10.1)
[2024-04-24 16:28] LABS: ALBUMIN 3.7 g/dl (3.4-5.0); BLOOD UREA NITROGEN 28.2 mg/dL (7-18); MAGNESIUM 2.3 mg/dL (1.8-2.4)
[2024-04-24 16:30] LABS: CREATININE 1.1 mg/dL (0.55-1.3)
[2024-04-24 16:32] LABS: BILIRUBIN,TOTAL 0.4 mg/dL (0.2-1); TOT PROT 6.8 g/dl (6.4-8.2)
[2024-04-24 16:43] LABS: URINE APPEARANCE CLEAR; URINE BILIRUBIN NEGATIVE (NEGATIVE); URINE COLOR YELLOW; URINE GLUCOSE (UA) NEGATIVE (NEGATIVE); URINE KETONE NEGATIVE (NEGATIVE); URINE LEUK ESTERASE NEGATIVE (NEGATIVE); URINE NITRITE NEGATIVE (NEGATIVE); URINE PROTEIN NEGATIVE (NEGATIVE); URINE UROBILINOGEN 0.2 mg/dL (0.2-1.0)
[2024-04-24 16:49] LABS: INR 0.93 (0.83-1.09); PROTHROMBIN TIME (PATIENT) 10.7 SEC (9.7-13.0)
[2024-04-24 16:51] LABS: ACTIVATED PTT 27.7 SECONDS (25.2-36.5)
[2024-04-24] MEDS ORDERED: IBUPROFEN 600 MG TABLET (FP) PO ONE (18:30)
[2024-04-24] MEDS: IBUPROFEN 600 MG TABLET (FP) PO ONE (18:41)
[2024-04-24] MEDS ORDERED: DOCUSATE SODIUM 100 MG CAPSULE (FP) PO PRN (19:44)
[2024-04-24 21:06] LABS: POTASSIUM 3.7 mmol/L (3.5-5.1)
[2024-04-24 21:08] LABS: CALCIUM 8.8 mg/dL (8.5-10.1)
[2024-04-24 21:09] LABS: BLOOD UREA NITROGEN 24.8 mg/dL (7-18)
[2024-04-24 21:11] LABS: CREATININE 1.1 mg/dL (0.55-1.3); PHOSPHOROUS 3.2 mg/dL (2.5-4.9)
[2024-04-24] MEDS: SODIUM CHLORIDE 1,000 ML IV SCH (21:45)
[2024-04-25 08:24] LABS: BASO % 0.3 % (0-2.0); EOS % 2.1 % (0-4.5); HEMATOCRIT 36.3 % (32.4-45.2); HEMOGLOBIN 12.2 GM/dL (10.7-15.3); LYMPH % 19.1 % (8-40); MCH 31.6 pg (25.7-33.7); MCHC 33.7 g/dl (32.0-36.0); MEAN CELL VOLUME 93.6 fl (80-96); MEAN PLT VOLUME 8.2 fl (7.5-11.1); MONO % 8.6 % (3.8-10.2); NEUT % 69.9 % (42.8-82.8); PLATELET COUNT 249 10^3/uL (134-434); RBC 3.88 M/mm3 (3.60-5.2); RDW 13.6 % (11.6-15.6); WHITE BLOOD COUNT 5.6 K/mm3 (4.0-10.0)
[2024-04-25 08:51] LABS: POTASSIUM 3.7 mmol/L (3.5-5.1)
[2024-04-25 08:53] LABS: CALCIUM 8.8 mg/dL (8.5-10.1)
[2024-04-25 08:55] LABS: BLOOD UREA NITROGEN 22.7 mg/dL (7-18)
[2024-04-25 08:57] LABS: CREATININE 0.9 mg/dL (0.55-1.3)
[2024-04-25] MEDS: MEMANTINE HCL 10 MG TABLET (FP) PO SCH (11:00)
[2024-04-25] MEDS: HYDROCHLOROTHIAZIDE 12.5 MG CAPSULE (FP) PO SCH (11:00)
[2024-04-25] MEDS: ACETAMINOPHEN 325 MG TABLET (FP) PO PRN (11:00)
[2024-04-25] MEDS: LISINOPRIL 10 MG TABLET PO SCH (11:00)
[2024-04-25] MEDS: PANTOPRAZOLE 40 MG TABLET PO SCH (11:00)
[2024-04-25] MEDS ORDERED: ACETAMINOPHEN 325 MG TABLET (FP) ONE (11:05)
[2024-04-25] MEDS ORDERED: LISINOPRIL 10 MG TABLET ONE (11:21)
[2024-04-25] MEDS ORDERED: PANTOPRAZOLE 20 MG TABLET PO ONE ×2 (11:21→11:22)
[2024-04-25] MEDS: DONEPEZIL HCL 10 MG TABLET (FP) PO SCH ×2 (11:23→21:37)
[2024-04-25 16:21] VITALS: BMI 30.9
[2024-04-25] MEDS: IBUPROFEN 600 MG TABLET (FP) PO PRN (16:41)
[2024-04-25] MEDS: ATORVASTATIN CA 10 MG TABLET (FP) PO SCH (21:37)
[2024-04-26 11:58] LABS: BASO % 0.4 % (0-2.0); EOS % 1.6 % (0-4.5); HEMATOCRIT 38.5 % (32.4-45.2); HEMOGLOBIN 12.7 GM/dL (10.7-15.3); LYMPH % 18.5 % (8-40); MCH 31.4 pg (25.7-33.7); MCHC 33.1 g/dl (32.0-36.0); MEAN PLT VOLUME 8.5 fl (7.5-11.1); MONO % 7.1 % (3.8-10.2); NEUT % 72.4 % (42.8-82.8); PLATELET COUNT 256 10^3/uL (134-434); RBC 4.05 M/mm3 (3.60-5.2); RDW 13.4 % (11.6-15.6); WHITE BLOOD COUNT 6.5 K/mm3 (4.0-10.0)
[2024-04-26 12:28] LABS: POTASSIUM 4.1 mmol/L (3.5-5.1)
[2024-04-26 12:30] LABS: ALBUMIN 3.6 g/dl (3.4-5.0); CALCIUM 9.1 mg/dL (8.5-10.1)
[2024-04-26 12:31] LABS: BLOOD UREA NITROGEN 16.6 mg/dL (7-18)
[2024-04-26 12:34] LABS: CREATININE 0.9 mg/dL (0.55-1.3)
[2024-04-26 12:35] LABS: BILIRUBIN,TOTAL 0.6 mg/dL (0.2-1); TOT PROT 6.7 g/dl (6.4-8.2)
[2024-04-26] MEDS: POLYETHYLENE GLYCOL (HEALTHYLAX) 3350 17 GM PACKET PO SCH (21:10)
[2024-04-27 09:41] LABS: BASO % 0.4 % (0-2.0); EOS % 3.3 % (0-4.5); HEMOGLOBIN 11.9 GM/dL (10.7-15.3); LYMPH % 21.1 % (8-40); MCH 31.4 pg (25.7-33.7); MCHC 33.1 g/dl (32.0-36.0); MEAN PLT VOLUME 8.4 fl (7.5-11.1); MONO % 10.3 % (3.8-10.2); NEUT % 64.9 % (42.8-82.8); PLATELET COUNT 248 10^3/uL (134-434); RBC 3.79 M/mm3 (3.60-5.2); RDW 13.7 % (11.6-15.6); WHITE BLOOD COUNT 5.8 K/mm3 (4.0-10.0)
[2024-04-27 09:51] LABS: POTASSIUM 3.6 mmol/L (3.5-5.1)
[2024-04-27 09:54] VITALS: BP 155/62; PULSE 60; RESP 17; TEMP 98.1
[2024-04-27 10:03] LABS: ALBUMIN 3.4 g/dl (3.4-5.0); CALCIUM 8.8 mg/dL (8.5-10.1)
[2024-04-27 10:04] LABS: BLOOD UREA NITROGEN 23.4 mg/dL (7-18); TOT PROT 6.2 g/dl (6.4-8.2)
[2024-04-27 10:07] LABS: BILIRUBIN,TOTAL 0.5 mg/dL (0.2-1); CREATININE 0.9 mg/dL (0.55-1.3)
== END 2024-04-27 15:27 | disposition home or self-care (01) | DRG 101 ==
LOC: JER 14:47 → JERBED 18:18 → OBSVTOIN 04-25 09:00 → J4W 04-25 16:04
PROVIDERS: ADMIT Internal Medicine; ATTEND Family Medicine
DX: R56.9 Unspecified convulsions (principal); E78.5 Hyperlipidemia, unspecified; F03.90 Unspecified dementia, unspecified severity, without behavioral disturbance, psychotic disturbance, mood disturbance, and anxiety; I10 Essential (primary) hypertension; G43.909 Migraine, unspecified, not intractable, without status migrainosus; N23 Unspecified renal colic; M54.89 Other dorsalgia
CPT/HCPCS: 36415; 70450-TC; 70551-TC; 71045-TC-FY; 74176-TC; 76856-TC; 80048; 80053; 81003; 82962; 83735; 84100; 84484; 85025; 85610; 85730; 86850; 86900; 86901; 87086; 93005; 93010; 99285-25; G0378

== ENCOUNTER 2025-01-05 11:42 | Emergency (ER) | payer OTHER, MEDICARE ==
[2025-01-05 12:03] VITALS: BMI 31.2
[2025-01-05] MEDS ORDERED: ACETAMINOPHEN INJECTION 100 ML ONE (12:37)
[2025-01-05] MEDS: ACETAMINOPHEN 1000 MG/100 ML BAG IVPB ONE (12:40)
[2025-01-05 12:42] LABS: VENOUS BASE EXCESS 1.4 mmol/L (-2-2); VENOUS PCO2 48.6 mmHg (38-52); VENOUS PH 7.368 (7.310-7.410)
[2025-01-05 12:45] LABS: ABSOLUTE IMMATURE GRANULOCYTES 0.02 x10^3/uL (0.0-0.031); BASOPHILS # 0.02 x10^3/uL (0.01-0.08); EOSINOPHIL % 1.4 % (0.7-5.8); EOSINOPHILS # 0.09 x10^3/uL (0.04-0.36); HEMATOCRIT 37.5 % (34.1-44.9); HEMOGLOBIN 12.1 g/dL (11.2-15.7); MCHC 32.3 g/dl (32.2-35.5); MEAN CELL VOLUME 96.4 fl (79.4-94.8); MEAN PLT VOLUME 10.6 fl (9.4-12.3); MONOCYTE % 9.3 % (4.7-12.5); PLATELET COUNT 251 x10^3/uL (182-369); RDW 13.6 % (12.5-17.0)
[2025-01-05 12:54] LABS: INR 0.97 (0.83-1.09); PROTHROMBIN TIME (PATIENT) 10.6 SEC (9.7-13.0)
[2025-01-05 12:57] LABS: ACTIVATED PTT 27.3 SECONDS (25.2-36.5)
[2025-01-05 13:09] LABS: POTASSIUM 3.8 mmol/L (3.5-5.1)
[2025-01-05 13:11] LABS: CALCIUM 9.7 mg/dL (8.5-10.1)
[2025-01-05 13:12] LABS: ALBUMIN 3.5 g/dl (3.4-5.0); BLOOD UREA NITROGEN 21.4 mg/dL (7-18); MAGNESIUM 2.2 mg/dL (1.8-2.4)
[2025-01-05 13:15] LABS: CREATININE 0.9 mg/dL (0.55-1.3)
[2025-01-05 13:16] LABS: BILIRUBIN,TOTAL 0.4 mg/dL (0.2-1); TOT PROT 6.5 g/dl (6.4-8.2)
[2025-01-05] MEDS ORDERED: KETOROLAC TROMETHAMINE 15 MG/ML VIAL ONE (15:25)
[2025-01-05] MEDS: KETOROLAC TROMETHAMINE 15 MG/ML VIAL IVPUSH ONE (15:27)
[2025-01-05 16:44] VITALS: BP 130/75; PULSE 63; RESP 16; TEMP 98.5
== END 2025-01-05 16:45 | disposition short-term general hospital (02) ==
LOC: JER 11:42
PROC: 3E033NZ Introduction of Analgesics, Hypnotics, Sedatives into Peripheral Vein, Percutaneous Approach (ICD-10-PCS; principal; 2025-01-05)
PROC: 3E0333Z Introduction of Anti-inflammatory into Peripheral Vein, Percutaneous Approach (ICD-10-PCS; 2025-01-05)
DX: I49.5 Sick sinus syndrome (principal); G40.409 Other generalized epilepsy and epileptic syndromes, not intractable, without status epilepticus; R55 Syncope and collapse; R61 Generalized hyperhidrosis; R46.4 Slowness and poor responsiveness; R32 Unspecified urinary incontinence; R44.1 Visual hallucinations; R00.1 Bradycardia, unspecified; R68.83 Chills (without fever); M54.9 Dorsalgia, unspecified; G89.29 Other chronic pain
CPT/HCPCS: 36415; 71045-TC-FY; 80053; 82803; 82962; 83605; 83735; 84484; 85025; 85610; 85730; 86850; 86900; 86901; 93005; 93010; 99291